=== PATIENT | male | born 1950 | race Caucasian/White ===

== ENCOUNTER 2017-12-06 16:08 | Inpatient (IN) ==
[2017-12-06] MEDS ORDERED: 0.9 % Sodium Chloride 1,000 ML IVC ONE (16:36)
--- NOTE | 2017-12-06 16:39 | Emergency Department Note ---
Disposition Clinical Impression: Jaundice GI bleed Qualifiers: GI bleed type/associated pathology: unspecified gastrointestinal hemorrhage type Qualified Code(s): K92.2 - Gastrointestinal hemorrhage, unspecified Anemia Qualifiers: Anemia type: unspecified type Qualified Code(s): D64.9 - Anemia, unspecified Disposition: Admitted As Inpatient Condition: Serious Referrals: Shawn Vazquez Jr, MD [Primary Care Provider] - Forms: ED Satisfaction Letter Time of Disposition: 18:41 General Adult HPI - General Chief complaint: ED Syncope Stated complaint: lightheaded Time Seen by Provider: 12/06/17 16:26 Source: patient, EMS Mode of arrival: ambulatory Limitations: no limitations Nursing Notes Reviewed: Yes Vital Signs Reviewed: Yes - History of Present Illness HPI Narrative: 67-year-old male who comes in complaining of running this morning did have a dominant pain for the last week thought maybe his gallbladder but he points the left side of his abdomen. Also had some diarrhea which has resolved. States when he gets up he feels a physical to pass out gets real tachycardic. Pain Scale: 0 - Related Data Home Medications Medication Instructions Recorded Confirmed ALPRAZolam [Xanax 0.25 MG Tablet] 0.25 mg PO BID PRN 12/06/17 12/06/17 Desmopressin Acetate [Ddavp] 0.1 mg PO DAILY 12/06/17 12/06/17 Levothyroxine [Synthroid] 75 mcg PO 0630 12/06/17 12/06/17 Lisinopril [Zestril] 10 mg PO DAILY 12/06/17 12/06/17 Mirtazapine [Remeron] 15 mg PO HS 12/06/17 12/06/17 OxyCODONE/APAP 10/325 [Percocet 1 tab PO QID 12/06/17 12/06/17 10/325 MG] Oxymorphone HCl [Oxymorphone HCl 30 mg PO QID 12/06/17 12/06/17 ER] Risedronate Sodium [Actonel] 20 mg PO QWEEK 12/06/17 12/06/17 Testosterone [Androderm] 1 patch TP DAILY 12/06/17 12/06/17 Testosterone [Androgel] 1 appl TP DAILY 12/06/17 12/06/17 Warfarin Sodium 2.5 mg PO Q48H 12/06/17 12/06/17 Warfarin Sodium 5 mg PO Q48H 12/06/17 12/06/17 amLODIPine [Norvasc] 5 mg PO DAILY 12/06/17 12/06/17 Allergies Allergy/AdvReac Type Severity Reaction Status Date / Time No Known Allergies Allergy Verified 12/06/17 18:50 All systems ED: reviewed and negative except as stated. Constitutional: Denies: fever, chills, weakness, weight change Eyes: Denies: eye pain, eye discharge, vision change ENT ED: Denies: ear pain, throat pain, dental pain, hearing loss, epistaxis, congestion, dysphagia Cardiovascular: Denies: chest pain, palpitations, dyspnea on exertion, edema, syncope Respiratory: Denies: cough, dyspnea, wheezes, hemoptysis, stridor Gastrointestinal: Reports: abdominal pain, nausea, vomiting. Denies: diarrhea, constipation, hematemesis, melena, hematochezia Genitourinary: Denies: urgency, dysuria, frequency, hematuria Musculoskeletal: Denies: back pain, neck pain, arthralgia, myalgia Integumentary: Denies: rash, abrasion, lesions Neurological: Denies: headache, weakness, numbness, paresthesias, confusion, abnormal gait, vertigo Psychiatric: Denies: anxiety, depression, suicidal thoughts, homicidal thoughts , auditory hallucinations, visual hallucinations Endocrine: Denies: fatigue Hematological/Lymphatic: Denies: easy bleeding, easy bruising Allergic/Immunologic: Denies: facial swelling, urticaria Past Medical History - Past Medical History Medical history: Reports: fibromyalgia, osteoporosis, thyroid disease Psychiatric history: Reports: anxiety, depression - Social History Smoking Status: Never smoker Smokeless Tobacco Status: No Alcohol use: Reports: none Drug use: Reports: none Physical Exam - General Limitations: no limitations General appearance: alert, in no apparent distress - Head Head exam: atraumatic, normocephalic, normal inspection - Eye Eye exam: Present: normal appearance, PERRL, EOMI - ENT ENT exam: normal exam, normal oropharynx, mucous membranes moist - Neck Neck exam: Present: normal inspection - Chest Chest inspection: Present: normal inspection, symmetric chest wall rise - Respiratory Respiratory exam: Present: normal lung sounds bilaterally - Cardiovascular Cardiovascular exam: Present: regular rate, normal rhythm, normal heart sounds - Abdominal Exam Abdominal exam: Present: soft, Non-Tender. Absent: tenderness, distention, guarding, rebound, rigidity - Extremities Exam Extremities exam: Present: normal inspection, full ROM. Absent: tenderness, pedal edema - Expanded Lower Extremity Exam Neurovascular/Tendon exam: Absent: motor deficit, sensory deficit, tendon deficit Gait: observed and normal - Back Exam Back exam: Present: normal inspection, full ROM. Absent: tenderness - Neurological Exam Neurological exam: Present: alert, oriented X3 - Psychiatric Psychiatric exam: Present: normal affect - Skin Skin exam: Present: warm, dry, intact, normal color Course - Reevaluation(s) Reevaluation #1: He 7-year-old who is on Coumadin for blood clots or comes in with rectal bleeding lightheadedness. He is found to be anemic with significant liver impairment along with quite likely secondary to Coumadin. Patient will be given blood, fresh frozen plasma, vitamin K. Time: 19:19 - Consultations Consultation #1: Discussed with Dr. Dykes he will see in consult. Time: 18:24 Consultation #2: Discussed with Dr. Dejesus oncology who recommends rest frozen plasma and vitamin K Time: 19:19 Consultation #3: Discussed with , admit. Time: 19:19 Vital Signs Temperature 98.4 F 12/06/17 16:11 Pulse Rate 121 12/06/17 16:11 Respiratory Rate 18 12/06/17 16:11 Blood Pressure 134/88 12/06/17 16:11 O2 Sat by Pulse Oximetry 96 12/06/17 16:11 Temperature 98.2 F 12/06/17 19:14 Pulse Rate 109 12/06/17 19:14 Respiratory Rate 18 12/06/17 19:14 Blood Pressure 142/80 12/06/17 19:14 O2 Sat by Pulse Oximetry 99 12/06/17 19:14 Oxygen Delivery Oxygen Delivery Room Air Medical Decision Making - Lab Data Result diagrams: 12/06/17 16:38 12/06/17 16:38 Lab Results 12/06/17 12/06/17 12/06/17 Range/Units 16:15 16:30 16:38 WBC 13.2 H (4.3-11.1) K/mcL RBC 2.18 L (4.19-5.50) M/mcL Hgb 6.5 L (12.9-16.9) g/dL Hct 19.1 L (37.5-50.1) % MCV 87.6 (83.0-100.0) fL MCH 29.8 (28.0-33.3) pg MCHC 34.0 (31.6-35.5) g/dL RDW 18.1 H (11.5-14.5) % Plt Count 285 (140-400) K/mcL MPV 10.4 (9.4-12.4) fL Immature Gran % 3.8 (0-4) % Seg Neutrophils % 67.6 % Lymphocytes % 19.2 % Monocytes % 9.0 % Eosinophils % 0.2 % Basophils % 0.2 % Neutrophils # 8.9 (1.6-8.9) K/mcL Lymphocytes # 2.5 (0.6-4.6) K/mcL Monocytes # 1.2 (0.0-1.3) K/mcL Eosinophils # 0.0 (0.0-0.6) K/mcL Basophils # 0.0 (0.0-0.2) K/mcL Nucleated RBCs/100 WBC 1.4 H (0) /100 WBC PT (9.4-12.1) Seconds INR APTT (26.0-36.0) Seconds Sodium (136-145) mEq/L Potassium (3.5-5.1) mEq/L Chloride (98-107) mEq/L Carbon Dioxide (23-29) mEq/L BUN (8-23) mg/dL Creatinine (0.70-1.30) mg/dL Est GFR ( Amer) (> 60) Est GFR (Non-Af Amer) (> 60) BUN/Creatinine Ratio (6-26) Glucose (70-105) mg/dL POC Glucose 172 H (70-99) mg/dL Calculated Osmolality (280-300) Lactic Acid 1.2 (0.5-2.2) mmol/L Calcium (8.6-10.3) mg/dL Total Bilirubin (0.3-1.0) mg/dL Direct Bilirubin (0.0-0.2) mg/dL Indirect Bilirubin (0.0-1.2) mg/dL AST (13-39) Units/L ALT (7-52) Units/L Alkaline Phosphatase (34-104) Units/L Troponin I (< 0.04) ng/mL Serum Total Protein (6.4-8.9) g/dL Albumin (3.5-5.7) g/dL Globulin (2.4-3.5) g/dL Albumin/Globulin Ratio (1.1-2.2) Amylase (29-103) Units/L Lipase (11-82) Units/L Ur Specimen Adequacy Urine Color (Yellow) Urine Clarity (Clear) Urine pH (5.0-8.0) pH Units Ur Specific [place] (1.010-1.025) Urine Protein (Neg-Trace) mg/dL Urine Glucose (UA) (Normal) mg/dL Urine Ketones (Negative) mg/dL Urine Blood (Negative) Urine Nitrite (Negative) Urine Bilirubin (Negative) Urine Urobilinogen (Normal) mg/dL Ur Leukocyte Esterase (Negative) Ur Culture Indicated? (NO) Blood Type Antibody Screen Crossmatch 12/06/17 12/06/17 12/06/17 Range/Units 16:38 17:27 18:13 WBC (4.3-11.1) K/mcL RBC (4.19-5.50) M/mcL Hgb (12.9-16.9) g/dL Hct (37.5-50.1) % MCV (83.0-100.0) fL MCH (28.0-33.3) pg MCHC (31.6-35.5) g/dL RDW (11.5-14.5) % Plt Count (140-400) K/mcL MPV (9.4-12.4) fL Immature Gran % (0-4) % Seg Neutrophils % % Lymphocytes % % Monocytes % % Eosinophils % % Basophils % % Neutrophils # (1.6-8.9) K/mcL Lymphocytes # (0.6-4.6) K/mcL Monocytes # (0.0-1.3) K/mcL Eosinophils # (0.0-0.6) K/mcL Basophils # (0.0-0.2) K/mcL Nucleated RBCs/100 WBC (0) /100 WBC PT (9.4-12.1) Seconds INR APTT (26.0-36.0) Seconds Sodium 134 L (136-145) mEq/L Potassium 4.0 (3.5-5.1) mEq/L Chloride 99 (98-107) mEq/L Carbon Dioxide 28 (23-29) mEq/L BUN 28 H (8-23) mg/dL Creatinine 1.09 (0.70-1.30) mg/dL Est GFR ( Amer) > 60 (> 60) Est GFR (Non-Af Amer) > 60 (> 60) BUN/Creatinine Ratio 26 (6-26) Glucose 155 H (70-105) mg/dL POC Glucose (70-99) mg/dL Calculated Osmolality 287 (280-300) Lactic Acid (0.5-2.2) mmol/L Calcium 8.9 (8.6-10.3) mg/dL Total Bilirubin 7.5 H (0.3-1.0) mg/dL Direct Bilirubin 4.8 H (0.0-0.2) mg/dL Indirect Bilirubin 2.7 H (0.0-1.2) mg/dL AST 75 H (13-39) Units/L ALT 131 H (7-52) Units/L Alkaline Phosphatase 445 H (34-104) Units/L Troponin I < 0.03 (< 0.04) ng/mL Serum Total Protein 5.5 L (6.4-8.9) g/dL Albumin 3.3 L (3.5-5.7) g/dL Globulin 2.2 L (2.4-3.5) g/dL Albumin/Globulin Ratio 1.5 (1.1-2.2) Amylase 29 (29-103) Units/L Lipase 91 H (11-82) Units/L Ur Specimen Adequacy See below A Urine Color Red A (Yellow) Urine Clarity Cloudy A (Clear) Urine pH 6.0 (5.0-8.0) pH Units Ur Specific [place] 1.030 H (1.010-1.025) Urine Protein 100 H (Neg-Trace) mg/dL Urine Glucose (UA) Normal (Normal) mg/dL Urine Ketones Trace H (Negative) mg/dL Urine Blood Large H (Negative) Urine Nitrite Negative (Negative) Urine Bilirubin Large H (Negative) Urine Urobilinogen Normal (Normal) mg/dL Ur Leukocyte Esterase Small H (Negative) Ur Culture Indicated? YES A (NO) Blood Type B POSITIVE Antibody Screen NEGATIVE Crossmatch See Detail 12/06/17 Range/Units 18:13 WBC (4.3-11.1) K/mcL RBC (4.19-5.50) M/mcL Hgb (12.9-16.9) g/dL Hct (37.5-50.1) % MCV (83.0-100.0) fL MCH (28.0-33.3) pg MCHC (31.6-35.5) g/dL RDW (11.5-14.5) % Plt Count (140-400) K/mcL MPV (9.4-12.4) fL Immature Gran % (0-4) % Seg Neutrophils % % Lymphocytes % % Monocytes % % Eosinophils % % Basophils % % Neutrophils # (1.6-8.9) K/mcL Lymphocytes # (0.6-4.6) K/mcL Monocytes # (0.0-1.3) K/mcL Eosinophils # (0.0-0.6) K/mcL Basophils # (0.0-0.2) K/mcL Nucleated RBCs/100 WBC (0) /100 WBC PT > 320.0 H* (9.4-12.1) Seconds INR > 29.6 H* APTT 147.7 H* (26.0-36.0) Seconds Sodium (136-145) mEq/L Potassium (3.5-5.1) mEq/L Chloride (98-107) mEq/L Carbon Dioxide (23-29) mEq/L BUN (8-23) mg/dL Creatinine (0.70-1.30) mg/dL Est GFR ( Amer) (> 60) Est GFR (Non-Af Amer) (> 60) BUN/Creatinine Ratio (6-26) Glucose (70-105) mg/dL POC Glucose (70-99) mg/dL Calculated Osmolality (280-300) Lactic Acid (0.5-2.2) mmol/L Calcium (8.6-10.3) mg/dL Total Bilirubin (0.3-1.0) mg/dL Direct Bilirubin (0.0-0.2) mg/dL Indirect Bilirubin (0.0-1.2) mg/dL AST (13-39) Units/L ALT (7-52) Units/L Alkaline Phosphatase (34-104) Units/L Troponin I (< 0.04) ng/mL Serum Total Protein (6.4-8.9) g/dL Albumin (3.5-5.7) g/dL Globulin (2.4-3.5) g/dL Albumin/Globulin Ratio (1.1-2.2) Amylase (29-103) Units/L Lipase (11-82) Units/L Ur Specimen Adequacy Urine Color (Yellow) Urine Clarity (Clear) Urine pH (5.0-8.0) pH Units Ur Specific [place] (1.010-1.025) Urine Protein (Neg-Trace) mg/dL Urine Glucose (UA) (Normal) mg/dL Urine Ketones (Negative) mg/dL Urine Blood (Negative) Urine Nitrite (Negative) Urine Bilirubin (Negative) Urine Urobilinogen (Normal) mg/dL Ur Leukocyte Esterase (Negative) Ur Culture Indicated? (NO) Blood Type Antibody Screen Crossmatch - Radiology Data Radiology results reviewed: Yes I reviewed the patient's radiology results. Abdomen/Pelvis CT 12/06/17 16:39 IMPRESSION: Moderate intra/extrahepatic biliary ductal dilation without common duct calcified stone. Correlation for obstruction by noncalcified stone, stricture mass is recommended. Segment of right/ proximal transverse colon, located within the lower right pelvis, with moderate wall thickening as well as some adjacent stranding and fluid. Although findings could represent focal colitis to include diverticulitis, neoplasm should be considered given degree of wall thickening. Left nephrolithiasis. D/ / Elle Bryan Cha, MD / Elle Bryan Cha, MD Interpreting Provider: Elle Bryan Cha, MD Critical Care Time Critical Care Time: Yes Total Critical Care Time: 60 Attestation: The high probability of a clinically significant, sudden or life threatening deterioration of the [cardiovascular, GI] system(s) required my full and direct attention, intervention and personal management. The aggregate critical care time was [60] minutes. This time is in addition to time spent performing reported procedures but includes the following: [x] Data Review and interpretation [x] Patient assessment and monitoring of vital signs [x] Documentation [x] Medication orders and management
[2017-12-06 17:02] LABS: Basophils % 0.2 %; Eosinophils % 0.2 %; Hematocrit 19.1 % (37.5-50.1); Hemoglobin 6.5 g/dL (12.9-16.9); Immature Granulocytes % 3.8 % (0-4); Lymphocytes # 2.5 K/mcL (0.6-4.6); Lymphocytes % 19.2 %; Mean Corpuscular Hemoglobin 29.8 pg (28.0-33.3); Mean Corpuscular Volume 87.6 fL (83.0-100.0); Mean Platelet Volume 10.4 fL (9.4-12.4); Monocytes # 1.2 K/mcL (0.0-1.3); Neutrophils # 8.9 K/mcL (1.6-8.9); Nucleated Red Blood Cells 1.4 /100 WBC (0); Platelet Count 285 K/mcL (140-400); Red Blood Count 2.18 M/mcL (4.19-5.50); Red Cell Distribution Width 18.1 % (11.5-14.5); Segmented Neutrophils % 67.6 %
[2017-12-06 17:19] LABS: Troponin I < 0.03 ng/mL (< 0.04)
[2017-12-06 17:20] LABS: Alanine Aminotransferase 131 Units/L (7-52); Albumin 3.3 g/dL (3.5-5.7); Albumin/Globulin Ratio 1.5 (1.1-2.2); Alkaline Phosphatase 445 Units/L (34-104); Amylase 29 Units/L (29-103); Aspartate Amino Transferase 75 Units/L (13-39); BUN/Creatinine Ratio 26 (6-26); Bilirubin,Direct 4.8 mg/dL (0.0-0.2); Bilirubin,Indirect 2.7 mg/dL (0.0-1.2); Bilirubin,Total 7.5 mg/dL (0.3-1.0); Blood Urea Nitrogen 28 mg/dL (8-23); Calcium 8.9 mg/dL (8.6-10.3); Carbon Dioxide 28 mEq/L (23-29); Chloride 99 mEq/L (98-107); Globulin 2.2 g/dL (2.4-3.5); Glucose 155 mg/dL (70-105); Lipase 91 Units/L (11-82); Osmolality,Calculated 287 (280-300); Sodium 134 mEq/L (136-145); Total Protein 5.5 g/dL (6.4-8.9); eGFR For African Americans > 60 (> 60); eGFR For Non-African Americans > 60 (> 60)
[2017-12-06 17:54] LABS: Bilirubin,Urine Large (Negative); Blood,Urine Large (Negative); Clarity,Urine Cloudy (Clear); Glucose,Urine (UA) Normal (Normal); Ketones,Urine Trace mg/dL (Negative); Leukocyte Esterase,Urine Small (Negative); Nitrite,Urine Negative (Negative); Protein,Urine 100 mg/dL (Neg-Trace); Urobilinogen,Urine Normal (Normal)
[2017-12-06 17:55] LABS: Color,Urine Red (Yellow)
[2017-12-06] MEDS ORDERED: 0.9 % Sodium Chloride 500 ML ONE (18:34)
[2017-12-06 19:10] LABS: Activated Partial Thrombo Time 147.7 Seconds (26.0-36.0); INR > 29.6; Prothrombin Time > 320.0 Seconds (9.4-12.1)
[2017-12-06 19:19] LABS: Heparin anti-factor XA UFH 0.05 IU/mL (0.30-0.70)
--- NOTE | 2017-12-06 19:54 | Internal Med History&Physical ---
Date of Encounter: 12/06/17 Time of Encounter: 19:47 Internal Medicine - H&P: HPI Chief complaint: Lightheadedness Admitted From: Home History of present illness: Mr. 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 Patient states that he has been feeling lightheaded for at least a couple weeks. States it is worse upon standing or with exertion. Patient states that he feels weak. Patient states that he had some abdominal pain last Monday with associated diarrhea which has since resolved. Patient thought he was getting over the flu. Patient noted bright red blood in his stool earlier today. Denies history of GI bleeding or colonoscopies in the past. Denies history of colon cancer. Denies any chest pain but did feel palpitations related to his lightheadedness. Patient's also noted pruritus diffusely. Denies alcohol use. States he does take lower dose Tylenol occasionally. Denies any history of heart attacks and/or stents. No changes in medications recently. Reports no changes in his Coumadin. Patient also denied any noticeable changes in his skin color. Seen and examined in the emergency department. Patient's ED evaluation included basic labs including coagulation panel were patient's INR was noted to be supratherapeutic. Patient was given vitamin K, FFP, and 2 units of PRBCs. Patient's tachycardic but blood pressures preserved. Patient also had a CT scan abd/ pelvis which showed moderate intra-next hepatic biliary duct dilation without a common duct calcified stone. Segment of the proximal transverse colon with moderate wall thickening and adjacent stranding and fluid focal colitis versus diverticulitis versus neoplasm. Patient denies any abdominal pain currently. No nausea or vomiting. Past Med Surg Social Fam HX - Past Medical History Medical history: fibromyalgia, osteoporosis, thyroid disease Psychiatric history: anxiety, depression - Social History Smoking Status: Never smoker Smokeless Tobacco Status: No Alcohol use: none Drug use: none Internal Medicine - H&P: Meds ALPRAZolam [Xanax 0.25 MG Tablet] 0.25 mg PO BID PRN 12/06/17 [History] Desmopressin Acetate [Ddavp] 0.1 mg PO DAILY 12/06/17 [History] Levothyroxine [Synthroid] 75 mcg PO 30 12/06/17 [History] Lisinopril [Zestril] 10 mg PO DAILY 12/06/17 [History] Mirtazapine [Remeron] 15 mg PO HS 12/06/17 [History] OxyCODONE/APAP 10/325 [Percocet 10/325 MG] 1 tab PO QID 12/06/17 [History] Oxymorphone HCl [Oxymorphone HCl ER] 30 mg PO QID 12/06/17 [History] Risedronate Sodium [Actonel] 20 mg PO QWEEK 12/06/17 [History] Testosterone [Androderm] 1 patch TP DAILY 12/06/17 [History] Testosterone [Androgel] 1 appl TP DAILY 12/06/17 [History] Warfarin Sodium 2.5 mg PO Q48H 12/06/17 [History] Warfarin Sodium 5 mg PO Q48H 12/06/17 [History] amLODIPine [Norvasc] 5 mg PO DAILY 12/06/17 [History] 3 Allergy/AdvReac Type Severity Reaction Status Date / Time No Known Allergies Allergy Verified 12/06/17 18:50 All Systems PM: A 10-system review of systems was performed and is negative for pertinent findings except as documented above in the HPI. - Constitutional Constitutional: as per HPI, weakness, no fever(s) - Cardiovascular Cardiovascular ROS IM: as per HPI, dyspnea, dyspnea on exertion, lightheadedness , palpitations, no chest pain - Respiratory Respiratory: as per HPI, dyspnea, no cough, no hemoptysis - Gastrointestinal Gastrointestinal: as per HPI, abdominal pain, hematochezia, no melena - Integumentary Integumentary IM: as per HPI - Neurological Neurological ROS: as per HPI - Endocrine Endocrine IM: as per HPI - Hematologic/Lymphatic Hematologic/Lymphatic: as per HPI - Constitutional Vitals: Temp Pulse Resp BP Pulse Ox 98.2 F 116 18 149/82 99 12/06/17 19:14 12/06/17 19:31 12/06/17 19:31 12/06/17 19:31 12/06/17 19:14 General appearance: Present: cooperative, A&O X 3, answers questions appropriately - Head Head exam: Present: atraumatic, normocephalic - Eye Eye exam: Present: EOMI, PERRL, scleral icterus. Absent: conjunctival injection - ENT ENT exam: Present: mucous membranes moist, normal exam - Neck Neck exam general surgery: Present: full ROM, normal inspection - Respiratory Respiratory exam: Present: accessory muscle use, CTAB. Absent: respiratory distress - Cardiovascular Cardiovascular exam: Present: +S1, +S2, tachycardia - GI/Abdominal GI/Abdominal exam: Present: soft. Absent: rebound, tenderness, no peritoneal signs - Extremities Exam Extremities exam: Present: normal inspection, warm. Absent: pedal edema - Neurological Exam Neurological exam: Present: alert, CN II-XII intact, oriented X3, no focal deficits - Skin Skin exam: Present: pallor (Jaundice), warm Internal Med - H&P Results - Labs CBC & Chem 7: 12/06/17 16:38 12/06/17 16:38 Labs: Short CBC 12/06/17 Range/Units 16:38 WBC 13.2 H (4.3-11.1) K/mcL Hgb 6.5 L (12.9-16.9) g/dL Hct 19.1 L (37.5-50.1) % Plt Count 285 (140-400) K/mcL Neutrophils # 8.9 (1.6-8.9) K/mcL BMP 12/06/17 16:38 Sodium 134 L Potassium 4.0 Chloride 99 Carbon Dioxide 28 BUN 28 H Creatinine 1.09 Glucose 155 H Calcium 8.9 Cardiac Enzymes 12/06/17 Range/Units 16:38 Troponin I < 0.03 (< 0.04) ng/mL Liver Function 12/06/17 Range/Units 16:38 Total Bilirubin 7.5 H (0.3-1.0) mg/dL Direct Bilirubin 4.8 H (0.0-0.2) mg/dL AST 75 H (13-39) Units/L ALT 131 H (7-52) Units/L Alkaline Phosphatase 445 H (34-104) Units/L Albumin 3.3 L (3.5-5.7) g/dL Urine 12/06/17 Range/Units 17:27 Urine Color Red A (Yellow) Urine Clarity Cloudy A (Clear) Urine pH 6.0 (5.0-8.0) pH Units Ur Specific [place] 1.030 H (1.010-1.025) Urine Protein 100 H (Neg-Trace) mg/dL Urine Glucose (UA) Normal (Normal) mg/dL - Impressions ITS Impressions Abdomen/Pelvis CT 12/06/17 16:39 IMPRESSION: Moderate intra/extrahepatic biliary ductal dilation without common duct calcified stone. Correlation for obstruction by noncalcified stone, stricture mass is recommended. Segment of right/ proximal transverse colon, located within the lower right pelvis, with moderate wall thickening as well as some adjacent stranding and fluid. Although findings could represent focal colitis to include diverticulitis, neoplasm should be considered given degree of wall thickening. Left nephrolithiasis. D/ / Elle Bryan Cha, MD / Elle Bryan Cha, MD Interpreting Provider: Elle Bryan Cha, MD - Assessment and plan (1) Supratherapeutic INR Current Visit: Yes Status: Acute Assessment and plan: Patient is chronically anticoagulated due to recurrent DVTs. Patient's INR was noted to be 29.6. Concerns of GI bleed as the patient had bright blood in his stool this morning. Patient does have an acute drop in his hemoglobin to 6.5. Patient is symptomatic. We will reverse the patient's coagulopathy given his symptomatic anemia. Patient denies history of mechanical heart valve. INR also likely elevated secondary to liver injury. Patient denies alcohol use however the patient does take chronic Percocet. Will check an acetaminophen level. Plan -Vitamin K -FFP 2 units -Hematology oncology consult from the ED. Appreciate recommendations. (2) Anemia Current Visit: Yes Status: Acute Assessment and plan: Hemoglobin to 6.5. Patient's symptomatic with lightheadedness and weakness with exertion. We will transfuse the patient. 2 units of PRBC were ordered per the ED. Plan -Transfuse 2 units PRBC now -Serial H&H's -Transfusion goal of hemoglobin greater than 7. Qualifiers: Anemia type: unspecified type Qualified Code(s): D64.9 - Anemia, unspecified (3) Elevated bilirubin Current Visit: Yes Status: Acute Assessment and plan: Total bilirubin of 7.5 with direct of 4.8. CT scan showed intra-and extrahepatic biliary duct dilation without calcified stone. PLAN -We will check an ultrasound of the liver. -Consult GI appreciate recs. (4) Transaminitis Current Visit: Yes Status: Acute Assessment and plan: AST is 75 a ALT 131. Denies alcohol use. However, patient does have excessive opioids. PLAN -acetaminophen level -Viral Hepatitis panel -Avoid hepatatoxins -GI consult (5) GI bleed Current Visit: Yes Status: Acute Assessment and plan: Patient has an acute drop in hemoglobin with bright blood in his stool. Denies history of colonoscopies or colon cancer in the past. CT the abdomen and pelvis shows evidence of inflammatory versus neoplasm. Patient's abdominal exam is unremarkable. General surgery was consult at from the ER. Appreciate their recommendations. Plan -Transfuse as above. Reverse coagulopathy as above -Proton 40 mg twice a day -General surgery consult for endoscopy. Appreciate recommendations. -Anticipate endoscopy once reversal of coagulation. Qualifiers: GI bleed type/associated pathology: unspecified gastrointestinal hemorrhage type Qualified Code(s): K92.2 - Gastrointestinal hemorrhage, unspecified (6) Jaundice Current Visit: Yes Status: Acute Assessment and plan: Elevated total bilirubin. Patient has pruritus related to his jaundice. Plan as above (7) DVT prophylaxis Current Visit: Yes Status: Acute Assessment and plan: Supratherapeutic INR in the setting of GI bleed. Mechanical prophylaxis - Time Spent With Patient Total time spent is greater than 50% in coordination of care (as documented) at patient's floor/unit and/or counseling patient:
[2017-12-06] MEDS ORDERED: Naloxone 0.4 MG/ML INJ IVP PRN ×2 (20:02)
[2017-12-06] MEDS ORDERED: Pantoprazole 40 MG VIAL IVP ONE (20:13)
--- NOTE | 2017-12-06 20:24 | Event Note ---
Date of Encounter: 12/07/17 Time of Encounter: 20:21 Patient was seen and examined. I agree with the Resident Physician's H&P as written. 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 Has noted BRBPR today but has seen black tarry stools in the past. He has vague abdominal pain. In the ED he was tachycardic but stable otherwise. Laboratory work up showed hgb 6.5 with previous Hgb around 14-15. INR >29. Abnormal LFTs. CT abd/pelvis showed moderate intra/ extrahepatic biliary ductal dilation without CBD stone. Patient is jaundiced and pale Tachycardic. S1, S2, no m/r/g CTAB Soft, NT, ND, +BS No edema, 2+DP Nonfocal Admit to ICU 2 units PRBCs, FFPs, IV vit K Serial H/H IV PPI Surgery c/s in the ED and coming to evaluate the patient Hold Coumadin Unclear why in liver failure. check hepatitis panel, tylenol level GI consult for abnormal LFTs and CT abd/pelvis findings RUQ US. May need MRCP/ERCP
[2017-12-06] MEDS ORDERED: 0.9 % Sodium Chloride 250 ML ONE ×2 (20:26→22:22)
[2017-12-06 20:27] LABS: Acetaminophen < 10 mcg/mL (10-20)
[2017-12-06] MEDS: 0.9 % Sodium Chloride 1,000 ML IVC SCH (20:27)
[2017-12-07] MEDS ORDERED: 0.9 % Sodium Chloride 250 ML ONE ×3 (02:10→22:43)
[2017-12-07] MEDS: OXYCODONE Oral CONC 10 MG/0.5 ML ORAL.SYG SL PRN ×2 (02:21→09:21)
[2017-12-07 02:22] LABS: VBG Ionized Calcium 1.01 mmol/L (1.15-1.35)
[2017-12-07 02:31] LABS: Hematocrit 21.3 % (37.5-50.1); Hemoglobin 6.9 g/dL (12.9-16.9)
[2017-12-07 02:32] LABS: Alanine Aminotransferase 104 Units/L (7-52); Albumin/Globulin Ratio 1.4 (1.1-2.2); Alkaline Phosphatase 367 Units/L (34-104); Aspartate Amino Transferase 62 Units/L (13-39); BUN/Creatinine Ratio 26 (6-26); Basophils % 0.4 %; Bilirubin,Total 7.5 mg/dL (0.3-1.0); Blood Urea Nitrogen 26 mg/dL (8-23); Calcium 8.1 mg/dL (8.6-10.3); Carbon Dioxide 25 mEq/L (23-29); Chloride 103 mEq/L (98-107); Eosinophils # 0.1 K/mcL (0.0-0.6); Eosinophils % 1.4 %; Globulin 2.1 g/dL (2.4-3.5); Glucose 112 mg/dL (70-105); Hematocrit 21.7 % (37.5-50.1); Hemoglobin 7.1 g/dL (12.9-16.9); INR 1.8; Immature Granulocytes % 4.7 % (0-4); Lymphocytes # 2.4 K/mcL (0.6-4.6); Lymphocytes % 23.4 %; Magnesium 1.6 mg/dL (1.6-2.6); Mean Corpuscular HGB Conc 32.7 g/dL (31.6-35.5); Mean Corpuscular Hemoglobin 29.3 pg (28.0-33.3); Mean Corpuscular Volume 89.7 fL (83.0-100.0); Mean Platelet Volume 10.1 fL (9.4-12.4); Monocytes % 9.5 %; Neutrophils # 6.2 K/mcL (1.6-8.9); Nucleated Red Blood Cells 1.9 /100 WBC (0); Osmolality,Calculated 286 (280-300); Phosphorous 3.1 mg/dL (2.7-4.5); Platelet Count 169 K/mcL (140-400); Prothrombin Time 19.4 Seconds (9.4-12.1); Red Blood Count 2.42 M/mcL (4.19-5.50); Segmented Neutrophils % 60.6 %; Sodium 135 mEq/L (136-145); Total Protein 5.1 g/dL (6.4-8.9); eGFR For African Americans > 60 (> 60); eGFR For Non-African Americans > 60 (> 60)
[2017-12-07 02:36] LABS: Activated Partial Thrombo Time 22.3 Seconds (26.0-36.0)
[2017-12-07 03:45] LABS: Hepatitis B Surface Antigen Nonreactive (Nonreactive)
[2017-12-07 05:20] LABS: Hematocrit 19.9 % (37.5-50.1); Hemoglobin 6.9 g/dL (12.9-16.9)
[2017-12-07] MEDS ORDERED: Pantoprazole 40 MG VIAL IVP SCH (09:00)
--- NOTE | 2017-12-07 10:00 | General Surgery Consult Note ---
Date of Encounter: 12/07/17 Time of Encounter: 09:00 Assessment and Plan (1) GI bleed Current Visit: Yes Status: Acute Brisk UGI bleed vs LGI Bleed Gross red blood per rectum noted 12/06/2017 saturating bowl. Symptomatic anemia; initial hemoglobin 6.5g/dL. Hgb 6.9 this AM after 2u pRBCs Sinus tachycardia in 120s with normal-elevated BP; unstable. On Warfarin with initial INR supratherapeutic (>29); 1.8 after FFP & Vit-K. H/ O consulted by primary team. 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 Per patient, he has had gradually worsening fatigue over the last several weeks. Patient states it just feels like he is tired all the time. Saw his primary care provider, Dr. Vazquez, on Monday of last week; patient recalls no distinct intervention. Patient also describes a vague suprapubic cramping sensation during the last week or so. Also developing diffuse pruritus. Denies any nausea or vomiting prior to hospitalization. Over the last 2 days, patient states he began to feel short of breath, the heart palpitations, and lightheaded when he would get up to walk. Patient had one stool yesterday in the early afternoon that featured with blood coated stools prior to wiping. Patient states blood saturated bowl. This coupled with the presyncopal sensation prompted patients presentation to the ED for further evaluation. States has had melena in the past, but not lately (no eval specifically for this). ED: Patient initially tachycardic in the ED, however other vitals are stable. Initial labs include white cell count of 13.2, hemoglobin of 6.5 (previously 14.5 in 2014), hct of 19.1, platelet count of 285, INR greater than 29.6, a PTT 147.7, normal electrolytes (see results), total bilirubin of 7.5, direct bilirubin of 4.8, indirect bilirubin of 2.7, AST 75, ALT 131, ALP 45, troponin less than 0.03, and lipase 91. Acetaminophen level less than 10. HBsAg nonreactive. UA significant for cloudy gross red quality, large blood, large bilirubin. CT done in the ER demonstrated extrahepatic biliary dilatation without visualized stone, and right transverse colon with wall thickening and adjacent stranding. Follow-up right upper quadrant ultrasound demonstrated diffuse wall thickening, luminal bile/sludge, CVD dilatation to 8.1 mm; this was stated as a technically limited exam due to bowel gas interference. Admitted to ICU with surgical consult for assessment of GI bleed. So far has received 2 units of packed red blood cells and 2 units of FFP. Last hemoglobin collected at 0500 was 6.9 g/dL. Past Med Surg Social Fam HX - Past Medical History Source: patient Medical history: fibromyalgia, GERD, osteoporosis, thyroid disease Psychiatric history: anxiety, depression - Social History Smoking Status: Never smoker Smokeless Tobacco Status: No Alcohol use: none Drug use: none - Family History Mother Living Status: Age at : 74 Cause of : CHF Hx Family Cardiac Disorders: Yes (CHF, CVA) Hx Family Endocrine Disorder: Yes (DM) Medications and Allergies ALPRAZolam [Xanax 0.25 MG Tablet] 0.25 mg PO BID PRN 12/06/17 [History] Desmopressin Acetate [Ddavp] 0.1 mg PO DAILY 12/06/17 [History] Levothyroxine [Synthroid] 75 mcg PO 0630 12/06/17 [History] Lisinopril [Zestril] 10 mg PO DAILY 12/06/17 [History] Mirtazapine [Remeron] 15 mg PO HS 12/06/17 [History] OxyCODONE/APAP 10/325 [Percocet 10/325 MG] 1 tab PO QID 12/06/17 [History] Oxymorphone HCl [Oxymorphone HCl ER] 30 mg PO QID 12/06/17 [History] Risedronate Sodium [Actonel] 20 mg PO QWEEK 12/06/17 [History] Testosterone [Androderm] 1 patch TP DAILY 12/06/17 [History] Testosterone [Androgel] 1 appl TP DAILY 12/06/17 [History] Warfarin Sodium 2.5 mg PO Q48H 12/06/17 [History] Warfarin Sodium 5 mg PO Q48H 12/06/17 [History] amLODIPine [Norvasc] 5 mg PO DAILY 12/06/17 [History] 3 Allergy/AdvReac Type Severity Reaction Status Date / Time No Known Allergies Allergy Verified 12/06/17 18:50 Review of Systems All systems PM: Patient denies any fevers, chills, sweats, headaches, chest pain, constipation during present course, dysuria, hematuria, abnormal urethral discharge, testicular pain, or change in chronic pedal edema. Denies noticing any skin color change prior to admission. General Surgery Exam Initial Vital Signs Temp Pulse Resp BP Pulse Ox 98.4 F 121 18 134/88 96 12/06/17 16:11 12/06/17 16:11 12/06/17 16:11 12/06/17 16:11 12/06/17 16:11 VITAL SIGNS: Reviewed. Tachycardic in the 120s; sinus on the monitor. GENERAL: comfortably supine, no acute distress, answers questions appropriately. HEENT: icteric sclerae, oropharynx pink/moist, no JVD noted.] CV: RRR, no murmurs or gallops, no JVD RESPIRATORY: CTAB without wheezes, rales, or rhonchi ABD: grossly normal, active sounds, soft, tender to RLQ, no rebound/distention/ rigidity, no peritoneal signs. EXTREMITY: grossly normal motor function, no pedal edema, peripheral pulses 2+ b /l NEUROLOGIC EXAM: AOx3, obeys commands, no speech deficits. PSYCHIATRIC: normal mood and affect SKIN: mild generalized jaundice Exam Initial Vital Signs Temp Pulse Resp BP Pulse Ox 98.4 F 121 18 134/88 96 12/06/17 16:11 12/06/17 16:11 12/06/17 16:11 12/06/17 16:11 12/06/17 16:11 Results - Labs 12/07/17 04:58 12/07/17 02:01 Abnormal lab results RBC 2.42 M/mcL (4.19-5.50) L 12/07/17 02:01 Hgb 6.9 g/dL (12.9-16.9) L 12/07/17 04:58 Hct 19.9 % (37.5-50.1) L 12/07/17 04:58 RDW 19.0 % (11.5-14.5) H 12/07/17 02:01 Immature Gran % 4.7 % (0-4) H 12/07/17 02:01 Nucleated RBCs/100 WBC 1.9 /100 WBC (0) H 12/07/17 02:01 PT 19.4 Seconds (9.4-12.1) H D 12/07/17 02:01 APTT 22.3 Seconds (26.0-36.0) L D 12/07/17 02:01 Heparin Anti-Xa, Unfract 0.05 IU/mL (0.30-0.70) L 12/06/17 18:13 Sodium 135 mEq/L (136-145) L 12/07/17 02:01 BUN 26 mg/dL (8-23) H 12/07/17 02:01 Glucose 112 mg/dL (70-105) H 12/07/17 02:01 POC Glucose 145 mg/dL (70-99) H 12/06/17 21:49 Calcium 8.1 mg/dL (8.6-10.3) L 12/07/17 02:01 Venous Ioniz Calcium 1.01 mmol/L (1.15-1.35) L 12/07/17 02:19 Total Bilirubin 7.5 mg/dL (0.3-1.0) H 12/07/17 02:01 Direct Bilirubin 4.8 mg/dL (0.0-0.2) H 12/06/17 16:38 Indirect Bilirubin 2.7 mg/dL (0.0-1.2) H 12/06/17 16:38 AST 62 Units/L (13-39) H 12/07/17 02:01 ALT 104 Units/L (7-52) H 12/07/17 02:01 Alkaline Phosphatase 367 Units/L (34-104) H 12/07/17 02:01 Serum Total Protein 5.1 g/dL (6.4-8.9) L 12/07/17 02:01 Albumin 3.0 g/dL (3.5-5.7) L 12/07/17 02:01 Globulin 2.1 g/dL (2.4-3.5) L 12/07/17 02:01 Lipase 91 Units/L (11-82) H 12/06/17 16:38 Ur Specimen Adequacy See below A 12/06/17 17: Urine Color Red (Yellow) A 12/06/17 17: Urine Clarity Cloudy (Clear) A 12/06/17 17: Ur Specific [place] 1.030 (1.010-1.025) H 12/06/17 17:27 Urine Protein 100 mg/dL (Neg-Trace) H 12/06/17 17: Urine Ketones Trace mg/dL (Negative) H 12/06/17 17: Urine Blood Large (Negative) H 12/06/17 17: Urine Bilirubin Large (Negative) H 12/06/17 17: Ur Leukocyte Esterase Small (Negative) H 12/06/17 17: Ur Culture Indicated? YES (NO) A 12/06/17: Acetaminophen < 10 mcg/mL (10-20) L 12/06/17 16:38 Diabetes panel 12/07/17 Range/Units 02:01 Sodium 135 L (136-145) mEq/L Potassium 4.0 (3.5-5.1) mEq/L Chloride 103 (98-107) mEq/L Carbon Dioxide 25 (23-29) mEq/L BUN 26 H (8-23) mg/dL Creatinine 1.01 (0.70-1.30) mg/dL Glucose 112 H (70-105) mg/dL Calcium 8.1 L (8.6-10.3) mg/dL AST 62 H (13-39) Units/L ALT 104 H (7-52) Units/L Alkaline Phosphatase 367 H (34-104) Units/L Albumin 3.0 L (3.5-5.7) g/dL Calcium panel 12/07/17 Range/Units 02:01 Calcium 8.1 L (8.6-10.3) mg/dL Phosphorus 3.1 (2.7-4.5) mg/dL Albumin 3.0 L (3.5-5.7) g/dL Pituitary panel 12/07/17 Range/Units 02:01 Sodium 135 L (136-145) mEq/L Potassium 4.0 (3.5-5.1) mEq/L Chloride 103 (98-107) mEq/L Carbon Dioxide 25 (23-29) mEq/L BUN 26 H (8-23) mg/dL Creatinine 1.01 (0.70-1.30) mg/dL Glucose 112 H (70-105) mg/dL Calcium 8.1 L (8.6-10.3) mg/dL Adrenal panel 12/07/17 Range/Units 02:01 Sodium 135 L (136-145) mEq/L Potassium 4.0 (3.5-5.1) mEq/L Chloride 103 (98-107) mEq/L Carbon Dioxide 25 (23-29) mEq/L BUN 26 H (8-23) mg/dL Creatinine 1.01 (0.70-1.30) mg/dL Glucose 112 H (70-105) mg/dL Calcium 8.1 L (8.6-10.3) mg/dL Total Bilirubin 7.5 H (0.3-1.0) mg/dL AST 62 H (13-39) Units/L ALT 104 H (7-52) Units/L Alkaline Phosphatase 367 H (34-104) Units/L Albumin 3.0 L (3.5-5.7) g/dL All other labs normal. Consult Discharge Plan - Plan Referrals: Shawn Vazquez Jr, MD [Primary Care Provider] -
--- NOTE | 2017-12-07 10:07 | Oncology Inp Consult Note ---
<Jennyfer Concepcion - Last Filed: 12/07/17 17:03> Date of Encounter: 12/07/17 - Data of Consult Requesting Physician: Megan Rowell Primary Care Provider: Shawn Vazquez Jr, MD - Consult Narrative History of present illness: Coagulopathy, anticoagulant use, liver dysfunction. Imaging findings reviewed. Coagulopathy being corrected. 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 R/O colon malignancy, potential bleeding site for scope tomorrow. Will add tumor markers to labs I examined this patient and my medical decision-making was reviewed with the Advanced Practice Nurse, Cadence Figueroa. I agree with the documented findings, disposition and treatment plan as described except to the extent set forth below. Medications and Allergies ALPRAZolam [Xanax 0.25 MG Tablet] 0.25 mg PO BID PRN 12/06/17 [History] Desmopressin Acetate [Ddavp] 0.1 mg PO DAILY 12/06/17 [History] Levothyroxine [Synthroid] 75 mcg PO 0630 12/06/17 [History] Lisinopril [Zestril] 10 mg PO DAILY 12/06/17 [History] Mirtazapine [Remeron] 15 mg PO HS 12/06/17 [History] OxyCODONE/APAP 10/325 [Percocet 10/325 MG] 1 tab PO QID 12/06/17 [History] Oxymorphone HCl [Oxymorphone HCl ER] 30 mg PO QID 12/06/17 [History] Risedronate Sodium [Actonel] 20 mg PO QWEEK 12/06/17 [History] Testosterone [Androderm] 1 patch TP DAILY 12/06/17 [History] Testosterone [Androgel] 1 appl TP DAILY 12/06/17 [History] Warfarin Sodium 2.5 mg PO Q48H 12/06/17 [History] Warfarin Sodium 5 mg PO Q48H 12/06/17 [History] amLODIPine [Norvasc] 5 mg PO DAILY 12/06/17 [History] 3 Allergy/AdvReac Type Severity Reaction Status Date / Time No Known Allergies Allergy Verified 12/06/17 18:50 Oncology - Exam - Constitutional Vitals: Temp Pulse Resp BP Pulse Ox 98.3 F 107 18 173/105 100 12/07/17 12:25 12/07/17 12:25 12/07/17 12:25 12/07/17 12:25 12/07/17 12:25 Oncology - Results Labs: 12/07/17 12/07/17 12/07/17 04:58 02:19 02:01 WBC RBC Hgb 6.9 L Hct 19.9 L MCV MCH MCHC RDW Plt Count MPV Immature Gran % Seg Neutrophils % Lymphocytes % Monocytes % Eosinophils % Basophils % Neutrophils # Lymphocytes # Monocytes # Eosinophils # Basophils # Nucleated RBCs/100 WBC PT INR APTT Sodium 135 L Potassium 4.0 Chloride 103 Carbon Dioxide 25 BUN 26 H Creatinine 1.01 Est GFR ( Amer) > 60 Est GFR (Non-Af Amer) > 60 BUN/Creatinine Ratio 26 Glucose 112 H POC Glucose Calculated Osmolality 286 Calcium 8.1 L Venous Ioniz Calcium 1.01 L Phosphorus 3.1 Magnesium 1.6 Total Bilirubin 7.5 H AST 62 H ALT 104 H Alkaline Phosphatase 367 H Serum Total Protein 5.1 L Albumin 3.0 L Globulin 2.1 L Albumin/Globulin Ratio 1.4 Hep Bs Antigen 12/07/17 12/07/17 12/07/17 02:01 02:01 02:01 WBC 10.3 RBC 2.42 L Hgb 7.1 L Hct 21.7 L MCV 89.7 MCH 29.3 MCHC 32.7 RDW 19.0 H Plt Count 169 MPV 10.1 Immature Gran % 4.7 H Seg Neutrophils % 60.6 Lymphocytes % 23.4 Monocytes % 9.5 Eosinophils % 1.4 Basophils % 0.4 Neutrophils # 6.2 Lymphocytes # 2.4 Monocytes # 1.0 Eosinophils # 0.1 Basophils # 0.0 Nucleated RBCs/100 WBC 1.9 H PT 19.4 H D INR 1.8 D APTT 22.3 L D Sodium Potassium Chloride Carbon Dioxide BUN Creatinine Est GFR ( Amer) Est GFR (Non-Af Amer) BUN/Creatinine Ratio Glucose POC Glucose Calculated Osmolality Calcium Venous Ioniz Calcium Phosphorus Magnesium Total Bilirubin AST ALT Alkaline Phosphatase Serum Total Protein Albumin Globulin Albumin/Globulin Ratio Hep Bs Antigen Nonreactive 12/07/17 12/06/17 02:01 21:49 WBC RBC Hgb 6.9 L Hct 21.3 L MCV MCH MCHC RDW Plt Count MPV Immature Gran % Seg Neutrophils % Lymphocytes % Monocytes % Eosinophils % Basophils % Neutrophils # Lymphocytes # Monocytes # Eosinophils # Basophils # Nucleated RBCs/100 WBC PT INR APTT Sodium Potassium Chloride Carbon Dioxide BUN Creatinine Est GFR ( Amer) Est GFR (Non-Af Amer) BUN/Creatinine Ratio Glucose POC Glucose 145 H Calculated Osmolality Calcium Venous Ioniz Calcium Phosphorus Magnesium Total Bilirubin AST ALT Alkaline Phosphatase Serum Total Protein Albumin Globulin Albumin/Globulin Ratio Hep Bs Antigen Consult Discharge Plan - Plan Referrals: Shawn Vazquez Jr, MD [Primary Care Provider] - 12/14/17 10:00 am <Cadence Figueroa - Last Filed: 12/08/17 10:17> Date of Encounter: 12/07/17 Time of Encounter: 10:07 Assessment and Plan (1) GI bleed Status: Acute Assessment and plan: GIB likely precipitated by supratherapeutic INR which was >29, PTT 137 on admission. INR reversed s/p FFP and Vitamin K. Hgb 6.9 s/p 2 units PRBC, 1 more unit transfusing now, continue to closely monitor H&H Reports BRBPR incident prior to presentation to ER and melena like stools for a few days which he thought was secondary to pepto bismol use. GI consult-likely plan for EGD/colonoscopy and potential EUS/ERCP CT scan does note segment of right/ proximal transverse colon with moderate wall thickening as well as some adjacent stranding and fluid. this could be secondary to inflammatory response such as colitis/diverticulitis, however, malignancy is also in differential. He has had no prior EGD/Colonoscopy. Continue to hold coumadin. Likely plan to transition to DOAC in future, pending further workup H/O recurrent DVT's and remains at high risk- SCD's for DVT prevention. Qualifiers: GI bleed type/associated pathology: unspecified gastrointestinal hemorrhage type Qualified Code(s): K92.2 - Gastrointestinal hemorrhage, unspecified (2) Supratherapeutic INR Status: Acute Assessment and plan: Supratherapeutic INR may be precipated by coumadin use in presence of acute liver coagulopathy-GI workup pending INR reversed (3) Transaminitis Status: Acute Assessment and plan: CT abdomen/palvis without contrast demonstrated extrahepatic biliary dilatation without visualized stone Gallbladder US does reveal thickened GB wall along with thick bile/sludge Hepatitis screening panel pending GI consulted and note reviewed. Planned for MRCP and potential EUS/ERCP tomorrow - Data of Consult Patient: new to practice Consult date: 12/07/17 Requesting Physician: Megan Rowell Primary Care Provider: Shawn Vazquez Jr, MD - Consult Narrative Reason for consult: Acute GIB, supratherapeutic INR, Abnormal CT abdomen History of present illness: Mr. 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 Mr. Pearson presented to the ER on 12/06/17 with report of severe generalized weakness causing inability to stand/ambulate, fatigue, lightheadedness, BRBPR and heat palpitations. He was found to be tachycardic and anemic with a hgb of 6.5, INR >29.6, PTT 147.7, total bili 7.5, direct bili 4.8, indirect bili 2.7, AST 75, ALT 131, lipase 91. UA found large amount of blood and bilirubin. He was diagnosed with influenza a week or two ago and within the past week began experiencing kaykay colored steatorrhea with diffuse RUQ abdominal discomfort. He states he began taking pepto bismol which helped his symptoms, following this he developed the appearance of melena and believed this was related to his pepto bismol use. CT abdomen/palvis without contrast demonstrated extrahepatic biliary dilatation without visualized stone, and right transverse colon with wall thickening and adjacent stranding. He has never had an EGD/Colonoscopy. Gallbladder ultrasound demonstrated diffuse wall thickening, luminal bile/sludge , CVD dilatation to 8.1 mm; this was stated as a technically limited exam due to bowel gas interference. He has no personal history of cancer. He does report positive family history of cancer with paternal uncle diagnosed with an "abdominal" cancer age 67, paternal grandfather passing away with an unknown cancer, and two maternal aunts passing away in their 40's of lung cancer. He has had 2 LE DVT's, the second occurring after stopping his coumadin. He has been on indefinite coumadin therapy since that time for "a number of years" (alternates 5 mg and 2.5 mg coumadin). He cannot recall his last lab check for PT/INR. Patients mother has a history of DVT and patients son has history of DVT/PE starting at young age in his 30's, he is non compliant with his AC. He denies recent weight loss or appetite changes, reports unintended weight gain and has been taking OTC fat burning dietary supplement. Past Med Surg Social Fam HX - Past Medical History Medical history: fibromyalgia, GERD, osteoporosis, thyroid disease Psychiatric history: anxiety, depression - Social History Smoking Status: Never smoker Smokeless Tobacco Status: No Alcohol use: none Drug use: none - Family History Mother Living Status: Age at : 74 Cause of : CHF Hx Family Cardiac Disorders: Yes (CHF, CVA) Hx Family Endocrine Disorder: Yes (DM) Oncology - Exam - Constitutional Vitals: Temp Pulse Resp BP Pulse Ox 98.9 F 112 16 166/89 98 12/07/17 09:31 12/07/17 09:31 12/07/17 09:31 12/07/17 09:31 12/07/17 09:31 Oncology - Results Labs: 12/07/17 12/07/17 12/07/17 04:58 02:19 02:01 WBC RBC Hgb 6.9 L Hct 19.9 L MCV MCH MCHC RDW Plt Count MPV Immature Gran % Seg Neutrophils % Lymphocytes % Monocytes % Eosinophils % Basophils % Neutrophils # Lymphocytes # Monocytes # Eosinophils # Basophils # Nucleated RBCs/100 WBC PT INR APTT Sodium 135 L Potassium 4.0 Chloride 103 Carbon Dioxide 25 BUN 26 H Creatinine 1.01 Est GFR ( Amer) > 60 Est GFR (Non-Af Amer) > 60 BUN/Creatinine Ratio 26 Glucose 112 H POC Glucose Calculated Osmolality 286 Calcium 8.1 L Venous Ioniz Calcium 1.01 L Phosphorus 3.1 Magnesium 1.6 Total Bilirubin 7.5 H AST 62 H ALT 104 H Alkaline Phosphatase 367 H Serum Total Protein 5.1 L Albumin 3.0 L Globulin 2.1 L Albumin/Globulin Ratio 1.4 Hep Bs Antigen 12/07/17 12/07/17 12/07/17 02:01 02:01 02:01 WBC 10.3 RBC 2.42 L Hgb 7.1 L Hct 21.7 L MCV 89.7 MCH 29.3 MCHC 32.7 RDW 19.0 H Plt Count 169 MPV 10.1 Immature Gran % 4.7 H Seg Neutrophils % 60.6 Lymphocytes % 23.4 Monocytes % 9.5 Eosinophils % 1.4 Basophils % 0.4 Neutrophils # 6.2 Lymphocytes # 2.4 Monocytes # 1.0 Eosinophils # 0.1 Basophils # 0.0 Nucleated RBCs/100 WBC 1.9 H PT 19.4 H D INR 1.8 D APTT 22.3 L D Sodium Potassium Chloride Carbon Dioxide BUN Creatinine Est GFR ( Amer) Est GFR (Non-Af Amer) BUN/Creatinine Ratio Glucose POC Glucose Calculated Osmolality Calcium Venous Ioniz Calcium Phosphorus Magnesium Total Bilirubin AST ALT Alkaline Phosphatase Serum Total Protein Albumin Globulin Albumin/Globulin Ratio Hep Bs Antigen Nonreactive 12/07/17 12/06/17 02:01 21:49 WBC RBC Hgb 6.9 L Hct 21.3 L MCV MCH MCHC RDW Plt Count MPV Immature Gran % Seg Neutrophils % Lymphocytes % Monocytes % Eosinophils % Basophils % Neutrophils # Lymphocytes # Monocytes # Eosinophils # Basophils # Nucleated RBCs/100 WBC PT INR APTT Sodium Potassium Chloride Carbon Dioxide BUN Creatinine Est GFR ( Amer) Est GFR (Non-Af Amer) BUN/Creatinine Ratio Glucose POC Glucose 145 H Calculated Osmolality Calcium Venous Ioniz Calcium Phosphorus Magnesium Total Bilirubin AST ALT Alkaline Phosphatase Serum Total Protein Albumin Globulin Albumin/Globulin Ratio Hep Bs Antigen
[2017-12-07] MEDS: *HR* Metoprolol 5 MG/5 ML VIAL IVP PRN (11:29)
[2017-12-07] MEDS: 0.9 % Sodium Chloride 1,000 ML IVC SCH ×2 (11:32→21:07)
--- NOTE | 2017-12-07 12:26 | Internal Med Progress Note ---
Date of Encounter: 12/07/17 Time of Encounter: 12:39 - Assessment and plan (1) Anemia Current Visit: Yes Status: Acute Assessment and plan: Acute blood loss, likely lower GI bleed. Precipitated by elevated INR, lab on admission reads INR >29. INR corrected wth FFP, vitamin K, 2 units PRBC Surgery consulted, recommendations appreciated, Continue to monitor H&H Q8H monitor vitals closely Currently hypertensive does not appear hypovolemic. Qualifiers: Anemia type: unspecified type Qualified Code(s): D64.9 - Anemia, unspecified (2) Hypertension Current Visit: Yes Status: Acute Assessment and plan: At home patient takes lisinopril and norvasc Patient is NPO and currently hypertensive and tachycardic with BP ranging 150s- 180s/80s-105. He has HR from 100-119. He will need IV medication until can do NPO medications. Will schedule IV lopressor q6h and also prn since both hypertensive and tachycardic. Patient also in pain and may be contributing, will help control of pain and monitor. Qualifiers: Hypertension type: essential hypertension Qualified Code(s): I10 - Essential (primary) hypertension (3) Hyperbilirubinemia Current Visit: Yes Status: Acute (4) GI bleed Current Visit: Yes Status: Acute Assessment and plan: Plan as above. Qualifiers: GI bleed type/associated pathology: unspecified gastrointestinal hemorrhage type Qualified Code(s): K92.2 - Gastrointestinal hemorrhage, unspecified (5) Jaundice Current Visit: Yes Status: Acute (6) Supratherapeutic INR Current Visit: Yes Status: Acute (7) Transaminitis Current Visit: Yes Status: Acute Assessment and plan: GI consulted recommendations appreciated. Patient does take chronic pain medications at home including percocet per patient. CT scan: There was moderate intra and extrahepatic biliary ductal dilation without stone that was seen on CT scan. Gall bladder ultrasound: GBW thickened with bile sludge. common bile duct was 8.1 mm. Viral hepatitis panel pending, APAP level pending.. (8) History of DVT (deep vein thrombosis) Current Visit: Yes Status: Acute Assessment and plan: SCDs on patient Because of severe bleed, patient is poor anticoagulation candidate and was stopped on coumadin and INR was reversed. (9) DVT prophylaxis Current Visit: Yes Status: Acute Assessment and plan: SCDs - Time Spent With Patient Total time spent is greater than 50% in coordination of care (as documented) at patient's floor/unit and/or counseling patient: - Subjective Interval history: Patient having still some dizziness. He does not have any CP or SOB though he did prior to admission. States he has some lower quadrant abdominal pain but not severe. Denies fevers/chills, n/v, diarrhea. No recent BRBPR per patient. - Constitutional Vitals: Temp Pulse Resp BP Pulse Ox 98.9 F 100 18 166/87 98 12/07/17 09:31 12/07/17 12:06 12/07/17 11:33 12/07/17 12:06 12/07/17 11:33 General appearance: Present: cooperative, A&O X 3, answers questions appropriately Exam: Gen: NAD, AAOx3 CVS: tachycardic Lungs: CTAB Christiano: soft, +TTP in RLQ and LLQ. No peritoneal signs, no rebound rigidity, non -distended Skin: jaundiced HEENT: conjunctival pallor and scleral icterus as well. Internal Medicine: Result - Labs CBC & Chem 7: 12/07/17 04:58 12/07/17 02:01 Labs: Short CBC 12/07/17 12/07/17 12/07/17 Range/Units 02:01 02:01 04:58 WBC 10.3 (4.3-11.1) K/mcL Hgb 6.9 L 7.1 L 6.9 L (12.9-16.9) g/dL Hct 21.3 L 21.7 L 19.9 L (37.5-50.1) % Plt Count 169 (140-400) K/mcL Neutrophils # 6.2 (1.6-8.9) K/mcL BMP 12/07/17 02:01 Sodium 135 L Potassium 4.0 Chloride 103 Carbon Dioxide 25 BUN 26 H Creatinine 1.01 Glucose 112 H Calcium 8.1 L Liver Function 12/07/17 Range/Units 02:01 Total Bilirubin 7.5 H (0.3-1.0) mg/dL AST 62 H (13-39) Units/L ALT 104 H (7-52) Units/L Alkaline Phosphatase 367 H (34-104) Units/L Albumin 3.0 L (3.5-5.7) g/dL - ABG Interpretation ABG results: PT/INR, D-dimer PT 19.4 Seconds (9.4-12.1) H D 12/07/17 02:01 - VTE Documentation of Mechanical Device: Intermittent pneumatic compression device Consult Discharge Plan - Plan Referrals: Shawn Vazquez Jr, MD [Primary Care Provider] -
--- NOTE | 2017-12-07 13:18 | Gastroenterology Consult Note ---
<Lucy Velasco - Last Filed: 12/07/17 13:12> Date of Encounter: 12/07/17 Time of Encounter: 11:00 - Assessment and plan (1) GI bleed Current Visit: Yes Status: Acute Assessment and plan: Pt reports bright red rectal bleeding and epigastric pain. He was found to have a Hgb 6.8. Coumadin is on hold. Will proceed with EGD today and colonoscopy tomorrow. Qualifiers: GI bleed type/associated pathology: unspecified gastrointestinal hemorrhage type Qualified Code(s): K92.2 - Gastrointestinal hemorrhage, unspecified (2) Anemia Current Visit: Yes Status: Acute Assessment and plan: plan for EGD today to r/o esophagitis, gastritis, duodenitis, PUD, MW tear, or AVM. Keep patient NPO for now. Colonoscopy tomorrow to rule out AVM, bleeding polyp Qualifiers: Anemia type: unspecified type Qualified Code(s): D64.9 - Anemia, unspecified (3) Transaminitis Current Visit: Yes Status: Acute Assessment and plan: MRCP ordered likely has CBD stone, will plan for EUS and possible ERCP tomorrow. (4) Abnormal CT of the abdomen Current Visit: Yes Status: Acute Assessment and plan: CT abdomen shows colonic thickening, likely colitis but he needs a colonoscopy to rule out mass. - Time Spent With Patient Total time spent is greater than 50% in coordination of care (as documented) at patient's floor/unit and/or counseling patient: GI History of Present Illness - Data of Consult Patient: new to practice Consult date: 12/07/17 Requesting Physician: Megan Rowell - Consult Narrative Reason for consult: GI bleed, anemia, elevated LFTs History of present illness: Mr. 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 He presented to the emergency department with weakness and lightheadedness for the past week. He reports he was unable to stand yesterday. Patient states that he feels weak. Patient states that he had some abdominal pain last Monday with associated diarrhea which has since resolved. Patient noted bright red blood in his stool earlier today. Denies history of GI bleeding or colonoscopies in the past. Denies history of colon cancer. He denies any chest pain but does admit to tachycardia with exertion. ED evaluation included basic labs including coagulation panel were patient's INR was noted to be supratherapeutic. Patient was given vitamin K, FFP, and [address] scan abd/ pelvis showed moderate intra-next hepatic biliary duct dilation without a common duct calcified stone. Segment of the proximal transverse colon with moderate wall thickening and adjacent stranding and fluid focal colitis versus diverticulitis versus neoplasm. procedures: denies NSAIDS: denies anticoagulants: coumadin Past Med Surg Social Fam HX - Past Medical History Medical history: fibromyalgia, GERD, osteoporosis, thyroid disease Psychiatric history: anxiety, depression - Social History Smoking Status: Never smoker Smokeless Tobacco Status: No Alcohol use: none Drug use: none - Family History Mother Living Status: Age at : 74 Cause of : CHF Hx Family Cardiac Disorders: Yes (CHF, CVA) Hx Family Endocrine Disorder: Yes (DM) Review of Systems: GI: as per [facility] GENERAL: denies fever, has some chills EYES: denies yellow discoloration ENT: denies pain with swallowing or difficulty swallowing CARDIO: see HPI RESP: increasing Shortness of breath with exertion : reports dark urine NEURo: weakness HEME: Denies any bruising MS: chronic back and joint pain. DERM: denies rash or itching PSYCH: Denies history of anxiety or depression - Constitutional Vitals: Temp Pulse Resp BP Pulse Ox 98.3 F 107 18 173/105 100 12/07/17 12:25 12/07/17 12:25 12/07/17 12:25 12/07/17 12:25 12/07/17 12:25 Results - Labs CBC & Chem 7: 12/07/17 04:58 12/07/17 02:01 Labs: Last Result Calcium 8.1 mg/dL (8.6-10.3) L 12/07/17 02:01 Troponin I < 0.03 ng/mL (< 0.04) 12/06/17 16:38 Entire Visit Hgb 6.9 g/dL (12.9-16.9) L 12/07/17 04:58 Hct 19.9 % (37.5-50.1) L 12/07/17 04:58 PT 19.4 Seconds (9.4-12.1) H D 12/07/17 02:01 Total Bilirubin 7.5 mg/dL (0.3-1.0) H 12/07/17 02:01 AST 62 Units/L (13-39) H 12/07/17 02:01 ALT 104 Units/L (7-52) H 12/07/17 02:01 Amylase 29 Units/L (29-103) 12/06/17 16:38 Lipase 91 Units/L (11-82) H 12/06/17 16:38 Acetaminophen < 10 mcg/mL (10-20) L 12/06/17 16:38 - ABG ABG results: PT/INR, D-dimer PT 19.4 Seconds (9.4-12.1) H D 12/07/17 02:01 Consult Discharge Plan - Plan Referrals: Shawn Vazquez Jr, MD [Primary Care Provider] - 12/14/17 10:00 am <Steve Calvillo - Last Filed: 12/07/17 18:58> Date of Encounter: 12/07/17 Time of Encounter: 17:00 - Time Spent With Patient Total time spent is greater than 50% in coordination of care (as documented) at patient's floor/unit and/or counseling patient: GI History of Present Illness - Data of Consult Requesting Physician: Megan Rowell - Consult Narrative History of present illness: Mr. Pearson is a 67 year old male - Constitutional Vitals: Temp Pulse Resp BP Pulse Ox 98.3 F 93 18 191/111 98 12/07/17 12:25 12/07/17 18:03 12/07/17 18:03 12/07/17 18:03 12/07/17 18:03 Results - Labs CBC & Chem 7: 12/07/17 04:58 12/07/17 02:01 Labs: Last Result Calcium 8.1 mg/dL (8.6-10.3) L 12/07/17 02:01 Troponin I < 0.03 ng/mL (< 0.04) 12/06/17 16:38 Entire Visit Hgb 6.9 g/dL (12.9-16.9) L 12/07/17 04:58 Hct 19.9 % (37.5-50.1) L 12/07/17 04:58 PT 19.4 Seconds (9.4-12.1) H D 12/07/17 02:01 Total Bilirubin 7.5 mg/dL (0.3-1.0) H 12/07/17 02:01 AST 62 Units/L (13-39) H 12/07/17 02:01 ALT 104 Units/L (7-52) H 12/07/17 02:01 Amylase 29 Units/L (29-103) 12/06/17 16:38 Lipase 91 Units/L (11-82) H 12/06/17 16:38 Acetaminophen < 10 mcg/mL (10-20) L 12/06/17 16:38 - ABG ABG results: PT/INR, D-dimer PT 19.4 Seconds (9.4-12.1) H D 12/07/17 02:01 - Impressions Impressions Abdomen MRI 12/07/17 09:42 IMPRESSION: Marked biliary and pancreatic ductal dilatation to the level of the ampulla. No intraductal filling defect seen. Findings are suspicious for a subtle ampullary mass. Suggest correlation with ERCP. The findings were sent to the Radiology Results Communication [facility] at 2:40 pm on 12/07/2017 to be communicated to a licensed caregiver. D/ / Lit Castro MD / Lit Castro MD Interpreting Provider: Lit Castro MD - Attending Attestation I have personally performed a face to face evaluation on this patient. I have reviewed and agree with the care plan. History and Exam by me shows: Pt seen. Patient admitted because of supratherapeutic INR with the anemia and black stool. Also has double duct sign with the bilirubin of more than 7. CT and MRI is negative for any obvious mass. 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 Biopsies done. Impression: Patient with ampullary mass with obstructive jaundice. Recommendation: Follow path patient to be seen by Dr. Russell. Patient to to have PTC done by IR as cannot see major papilla because of the mass
[2017-12-07] MEDS: OXYCODONE Oral CONC 10 MG/0.5 ML ORAL.SYG SL SCH ×3 (14:39→21:09)
[2017-12-07] MEDS: Pantoprazole 40 MG in 0.9 % Sodium Chloride Mini Bag 100 ML IVC SCH ×2 (14:40→21:02)
[2017-12-07] MEDS ORDERED: *HR* Phytonadione 5 MG TABLET PO ONE (15:19)
--- NOTE | 2017-12-07 15:58 | Electrocardiograph Report ---
[address] [address] Test Date: 2017-12-06 Pat Name: Venu Pearson Department: 103 Room: 3A21 Gender: M Revival Clerk: LUCIANO : 1950 Requested By: Gregory Rand Order Number: [id number] Reading MD: Shante Gonsalez Measurements Intervals [place] Rate: 111 P: 59 HI: 206 QRS: 28 QRSD: 89 T: 64 QT: 306 QTc: 372 Interpretive Statements SINUS TACHYCARDIA NONSPECIFIC T-WAVE ABNORMALITY ABNORMAL RHYTHM ECG Electronically Signed On 12-07-2017 15:56:27 EDT by Shante Gonsalez
[2017-12-07] MEDS ORDERED: *HR* FentaNYL (PF) 100 MCG/2 ML VIAL ONE (17:14)
[2017-12-07] MEDS ORDERED: *HR* Midazolam HCl 5 MG/5 ML VIAL IVP ONE (17:14)
[2017-12-07] MEDS ORDERED: Simethicone 40 MG/0.6 ML MLS IR ONE (17:21)
[2017-12-07] MEDS ORDERED: Tetracaine/Benzocaine/Butamben 200MG/SPRAY (100SPY/BOT) MM ONE (17:21)
[2017-12-07] MEDS ORDERED: *HR* FentaNYL (PF) 100 MCG/2 ML VIAL IVP ONE (17:21)
[2017-12-07] MEDS ORDERED: *HR* Midazolam HCl 2 MG/2 ML VIAL IVP ONE (17:21)
--- NOTE | 2017-12-07 17:26 | Pre-Sedation Evaluation ---
Pre-sedation evaluation - Pre-sedation checklist Date of procedure: 12/07/17 Procedure: egd Recent Vitals: Last Vital Signs Temp 98.3 F 12/07/17 12:25 Pulse 120 12/07/17 17:24 Resp 18 12/07/17 17:24 BP 199/100 12/07/17 17:24 Pulse Ox 99 12/07/17 17:24 H&P (including ROS) documented in medical record: Yes Previous reaction to sedatives/anesthetics: No Dietary Status: NPO after Midnight Dentition: No loose teeth or bridges ASA Classification *see protocol: CLASS III-Severe systemic disease Plan of Care: Pt appropriate candidate for procedure/moderate/conscious sedation , Risks/benefits of procedure/sedation discussed w/ patient/family
[2017-12-07] MEDS ORDERED: 0.9 % Sodium Chloride 500 ML IVC SCH (17:30)
[2017-12-07] MEDS ORDERED: *HR* Metoprolol 5 MG/5 ML VIAL IVP ONE ×2 (17:35→17:36)
--- NOTE | 2017-12-07 19:56 | Event Note ---
Date of Encounter: 12/07/17 Time of Encounter: 09:55 GI bleed (Brisk UGI bleed vs LGI Bleed) Gross red blood per rectum noted 12/06/2017 saturating bowl. Symptomatic anemia; initial hemoglobin 6.5g/dL. Hgb 6.9 this AM after 2u pRBCs Sinus tachycardia in 120s with normal-elevated BP; unstable. On Warfarin with initial INR supratherapeutic (>29); 1.8 after FFP & Vit-K. H/ O consulted by primary team. Plan: will defer associated care to GI service as all measures we would offer are being presently pursued by GI team. Re-consult if distinct surgical need becomes apparent. HPI: This is a 67-year-old male with past medical history of recurrent DVT is on Coumadin who is admitted for acute gross red blood per rectum and symptomatic anemia. Per patient, he has had gradually worsening fatigue over the last several weeks. Patient states it just feels like he is tired all the time. Saw his primary care provider, Dr. Vazquez, on Monday of last week; patient recalls no distinct intervention. Patient also describes a vague suprapubic cramping sensation during the last week or so. Also developing diffuse pruritus. Denies any nausea or vomiting prior to hospitalization. Over the last 2 days, patient states he began to feel short of breath, the heart palpitations, and lightheaded when he would get up to walk. Patient had one stool yesterday in the early afternoon that featured with blood coated stools prior to wiping. Patient states blood saturated bowl. This coupled with the presyncopal sensation prompted patients presentation to the ED for further evaluation. States has had melena in the past, but not lately (no eval specifically for this). ROS: Patient denies any fevers, chills, sweats, headaches, chest pain, constipation during present course, dysuria, hematuria, abnormal urethral discharge, testicular pain, or change in chronic pedal edema. Denies noticing any skin color change prior to admission. ED: patient initially tachycardic in the ED, however other vitals are stable. Initial labs include white cell count of 13.2, hemoglobin of 6.5 (previously 14.5 in 2014), hct of 19.1, platelet count of 285, INR greater than 29.6, APTT 147.7, normal electrolytes (see results), total bilirubin of 7.5, direct bilirubin of 4.8, indirect bilirubin of 2.7, AST 75, ALT 131, ALP 45, troponin less than 0.03, and lipase 91. Acetaminophen level less than 10. HBsAg nonreactive. UA significant for cloudy gross red quality, large blood, large bilirubin. CT done in the ER demonstrated extrahepatic biliary dilatation without visualized stone, and right transverse colon with wall thickening and adjacent stranding. Follow-up right upper quadrant ultrasound demonstrated diffuse wall thickening, luminal bile/sludge, CBD dilatation to 8.1 mm; this was stated as a technically limited exam due to bowel gas interference. Admitted to ICU with surgical consult for assessment of GI bleed. So far has received 2 units of packed red blood cells and 2 units of FFP. LABS: reviewed IMAGING: reviewed VITAL SIGNS: Reviewed. Tachycardic in the 120s; sinus on the monitor. GENERAL: comfortably supine, no acute distress, answers questions appropriately. HEENT: icteric sclerae, oropharynx pink/moist, no JVD noted.] CV: RRR, no murmurs or gallops, no JVD RESPIRATORY: CTAB without wheezes, rales, or rhonchi ABD: grossly normal, active sounds, soft, lower quadrants tender, non-tender to RUQ, negative Forbes's sign, no rebound/distention/rigidity, no peritoneal signs. EXTREMITY: grossly normal motor function, no pedal edema, peripheral pulses 2+ b /l NEUROLOGIC EXAM: AOx3, obeys commands, no speech deficits. PSYCHIATRIC: normal mood and affect SKIN: mild generalized jaundice
[2017-12-08] MEDS ORDERED: 0.9 % Sodium Chloride 250 ML ONE ×4 (01:36→23:19)
[2017-12-08] MEDS: OXYCODONE Oral CONC 10 MG/0.5 ML ORAL.SYG SL SCH ×6 (01:37→21:13)
[2017-12-08] MEDS: Pantoprazole 40 MG in 0.9 % Sodium Chloride Mini Bag 100 ML IVC SCH ×4 (03:47→21:13)
[2017-12-08 04:40] LABS: Hepatitis A Antibody IgM Nonreactive (Nonreactive); Hepatitis B Core IgM Nonreactive (Nonreactive); Hepatitis C Virus Antibody Nonreactive (Nonreactive)
[2017-12-08 05:00] LABS: Basophils % 0.5 %; Eosinophils # 0.2 K/mcL (0.0-0.6); Eosinophils % 2.9 %; Hematocrit 20.3 % (37.5-50.1); Hemoglobin 6.6 g/dL (12.9-16.9); Immature Granulocytes % 2.9 % (0-4); Lymphocytes # 1.2 K/mcL (0.6-4.6); Lymphocytes % 20.6 %; Mean Corpuscular HGB Conc 32.5 g/dL (31.6-35.5); Mean Corpuscular Hemoglobin 28.4 pg (28.0-33.3); Mean Corpuscular Volume 87.5 fL (83.0-100.0); Monocytes # 0.6 K/mcL (0.0-1.3); Monocytes % 9.7 %; Neutrophils # 3.7 K/mcL (1.6-8.9); Platelet Count 182 K/mcL (140-400); Red Blood Count 2.32 M/mcL (4.19-5.50); Red Cell Distribution Width 19.7 % (11.5-14.5); Segmented Neutrophils % 63.4 %
[2017-12-08 05:22] LABS: Alanine Aminotransferase 84 Units/L (7-52); Albumin/Globulin Ratio 1.5 (1.1-2.2); Alkaline Phosphatase 316 Units/L (34-104); Aspartate Amino Transferase 63 Units/L (13-39); BUN/Creatinine Ratio 19 (6-26); Bilirubin,Total 9.1 mg/dL (0.3-1.0); Blood Urea Nitrogen 18 mg/dL (8-23); Calcium 8.6 mg/dL (8.6-10.3); Carbon Dioxide 26 mEq/L (23-29); Chloride 107 mEq/L (98-107); Glucose 94 mg/dL (70-105); Osmolality,Calculated 290 (280-300); Potassium 3.7 mEq/L (3.5-5.1); Sodium 139 mEq/L (136-145); eGFR For African Americans > 60 (> 60); eGFR For Non-African Americans > 60 (> 60)
[2017-12-08 07:51] LABS: INR 1.1; Prothrombin Time 11.4 Seconds (9.4-12.1)
[2017-12-08] MEDS ORDERED: Heparin 1,000 UNITS/500 mL 500 ML ONE (07:53)
[2017-12-08] MEDS ORDERED: 0.9 % Sodium Chloride 500 ML ONE ×2 (07:54→07:55)
[2017-12-08] MEDS ORDERED: *HR* Midazolam HCl 2 MG/2 ML VIAL IVP ONE ×4 (08:00→09:15)
[2017-12-08] MEDS ORDERED: *HR* FentaNYL (PF) 100 MCG/2 ML VIAL IVP ONE ×3 (08:00→08:58)
[2017-12-08] MEDS ORDERED: Ampicillin/Sulbactam 3,000 MG in 0.9 % Sodium Chloride Mini Bag 100 ML IVPB ONE (08:01)
[2017-12-08] MEDS ORDERED: Piperacillin/Tazobactam 3.375 GM in 0.9 % Sodium Chloride Mini Bag 100 ML IVPB ONE (08:19)
[2017-12-08] MEDS ORDERED: *HR* Midazolam HCl 2 MG/2 ML VIAL ONE ×2 (08:36→08:59)
[2017-12-08] MEDS ORDERED: *HR* FentaNYL (PF) 100 MCG/2 ML VIAL ONE ×2 (08:36→08:59)
[2017-12-08 08:41] LABS: Carcinoembryonic Antigen 1.9 ng/mL (Less than 5.0)
--- NOTE | 2017-12-08 08:43 | General Surgery Consult Note ---
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 service on upper endoscopy. Current bilirubin 9.1, up from 7.5 on admission. Plan: - Trans-hepatic biliary drainage per IR; hopefully this improves hyperbilirubinemia - Plan for Whipple resection once liver function has improved; goal of <4 total bilirubin. - Will need to monitor LFTs/Bilirubins daily in the meantime (2) GI bleed Current Visit: Yes Status: Acute being evaluated by GI team. Qualifiers: GI bleed type/associated pathology: unspecified gastrointestinal hemorrhage type Qualified Code(s): K92.2 - Gastrointestinal hemorrhage, unspecified History of Present Illness Consult date: 12/07/17 (GI - Dr. Calvillo) History of present illness: *Initially consulted for gastrointestinal bleed and symptomatic anemia along with G.I. service; GIS service initiated complete workup which, at the time, precluded surgical team necessity. During upper endoscopy, GI noted an ampullary mass prompting re-consultation of surgical services.* Detailed HPI below retrieved from previous event note done for original surgical consult 12/07/2017. 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 Per patient, he has had gradually worsening fatigue over the last several weeks. Patient states it just feels like he is tired all the time. Saw his primary care provider, Dr. Vazquez, on Monday of last week; patient recalls no distinct intervention. Patient also describes a vague suprapubic cramping sensation during the last week or so. Also developing diffuse pruritus. Denies any nausea or vomiting prior to hospitalization. Over the last 2 days, patient states he began to feel short of breath, the heart palpitations, and lightheaded when he would get up to walk. Patient had one stool yesterday in the early afternoon that featured with blood coated stools prior to wiping. Patient states blood saturated bowl. This coupled with the presyncopal sensation prompted patients presentation to the ED for further evaluation. States has had melena in the past, but not lately (no eval specifically for this). ROS: Patient denies any fevers, chills, sweats, headaches, chest pain, constipation during present course, dysuria, hematuria, abnormal urethral discharge, testicular pain, or change in chronic pedal edema. Denies noticing any skin color change prior to admission. ED: patient initially tachycardic in the ED, however other vitals are stable. Initial labs include white cell count of 13.2, hemoglobin of 6.5 (previously 14.5 in 2015), hct of 19.1, platelet count of 285, INR greater than 29.6, APTT 147.7, normal electrolytes (see results), total bilirubin of 7.5, direct bilirubin of 4.8, indirect bilirubin of 2.7, AST 75, ALT 131, ALP 45, troponin less than 0.03, and lipase 91. Acetaminophen level less than 10. HBsAg nonreactive. UA significant for cloudy gross red quality, large blood, large bilirubin. CT done in the ER demonstrated extrahepatic biliary dilatation without visualized stone, and right transverse colon with wall thickening and adjacent stranding. Follow-up right upper quadrant ultrasound demonstrated diffuse wall thickening, luminal bile/sludge, CBD dilatation to 8.1 mm; this was stated as a technically limited exam due to bowel gas interference. As stated above, GI initiated endoscopic evaluation elucidating an ampullary mass prompting them to re-consult surgical team. Past Med Surg Social Fam HX - Past Medical History Source: patient Medical history: fibromyalgia, GERD, osteoporosis, thyroid disease Psychiatric history: anxiety, depression - Social History Smoking Status: Never smoker Smokeless Tobacco Status: No Alcohol use: none Drug use: none - Family History Mother Living Status: Age at : 74 Cause of : CHF Hx Family Cardiac Disorders: Yes (CHF, CVA) Hx Family Endocrine Disorder: Yes (DM) Medications and Allergies ALPRAZolam [Xanax 0.25 MG Tablet] 0.25 mg PO BID PRN 12/06/17 [History] Desmopressin Acetate [Ddavp] 0.1 mg PO DAILY 12/06/17 [History] Levothyroxine [Synthroid] 75 mcg PO 0630 12/06/17 [History] Lisinopril [Zestril] 10 mg PO DAILY 12/06/17 [History] Mirtazapine [Remeron] 15 mg PO HS 12/06/17 [History] OxyCODONE/APAP 10/325 [Percocet 10/325 MG] 1 tab PO QID 12/06/17 [History] Oxymorphone HCl [Oxymorphone HCl ER] 30 mg PO QID 12/06/17 [History] Risedronate Sodium [Actonel] 20 mg PO QWEEK 12/06/17 [History] Testosterone [Androderm] 1 patch TP DAILY 12/06/17 [History] Testosterone [Androgel] 1 appl TP DAILY 12/06/17 [History] Warfarin Sodium 2.5 mg PO Q48H 12/06/17 [History] Warfarin Sodium 5 mg PO Q48H 12/06/17 [History] amLODIPine [Norvasc] 5 mg PO DAILY 12/06/17 [History] 3 Allergy/AdvReac Type Severity Reaction Status Date / Time No Known Allergies Allergy Verified 12/06/17 18:50 Review of Systems All systems PM: The remainder of the systems were reviewed and are negative General Surgery Exam Initial Vital Signs Temp Pulse Resp BP Pulse Ox 98.4 F 121 18 134/88 96 12/06/17 16:11 12/06/17 16:11 12/06/17 16:11 12/06/17 16:11 12/06/17 16:11 Stable exam from 12/07/17 VITAL SIGNS: Reviewed. Tachycardic in the 120s; sinus on the monitor. GENERAL: comfortably supine, no acute distress, answers questions appropriately. HEENT: icteric sclerae, oropharynx pink/moist, no JVD noted.] CV: RRR, no murmurs or gallops, no JVD RESPIRATORY: CTAB without wheezes, rales, or rhonchi ABD: grossly normal, active sounds, soft, lower quadrants tender, non-tender to RUQ, negative Forbes's sign, no rebound/distention/rigidity, no peritoneal signs. EXTREMITY: grossly normal motor function, no pedal edema, peripheral pulses 2+ b /l NEUROLOGIC EXAM: AOx3, obeys commands, no speech deficits. PSYCHIATRIC: normal mood and affect SKIN: mild generalized jaundice Exam Initial Vital Signs Temp Pulse Resp BP Pulse Ox 98.4 F 121 18 134/88 96 12/06/17 16:11 12/06/17 16:11 12/06/17 16:11 12/06/17 16:11 12/06/17 16:11 Results - Labs 12/08/17 04:09 12/08/17 04:09 Abnormal lab results RBC 2.32 M/mcL (4.19-5.50) L 12/08/17 04:09 Hgb 6.6 g/dL (12.9-16.9) L 12/08/17 04:09 Hct 20.3 % (37.5-50.1) L 12/08/17 04:09 RDW 19.7 % (11.5-14.5) H 12/08/17 04:09 Nucleated RBCs/100 WBC 1.0 /100 WBC (0) H 12/08/17 04:09 APTT 22.3 Seconds (26.0-36.0) L D 12/07/17 02:01 Heparin Anti-Xa, Unfract 0.05 IU/mL (0.30-0.70) L 12/06/17 18:13 POC Glucose 100 mg/dL (70-99) H 12/08/17 05:35 Venous Ioniz Calcium 1.01 mmol/L (1.15-1.35) L 12/07/17 02:19 Total Bilirubin 9.1 mg/dL (0.3-1.0) H 12/08/17 04:09 Direct Bilirubin 4.8 mg/dL (0.0-0.2) H 12/06/17 16:38 Indirect Bilirubin 2.7 mg/dL (0.0-1.2) H 12/06/17 16:38 AST 63 Units/L (13-39) H 12/08/17 04:09 ALT 84 Units/L (7-52) H 12/08/17 04:09 Alkaline Phosphatase 316 Units/L (34-104) H 12/08/17 04:09 Serum Total Protein 5.0 g/dL (6.4-8.9) L 12/08/17 04:09 Albumin 3.0 g/dL (3.5-5.7) L 12/08/17 04:09 Globulin 2.0 g/dL (2.4-3.5) L 12/08/17 04:09 Lipase 91 Units/L (11-82) H 12/06/17 16:38 Ur Specimen Adequacy See below A 05/23/18 17:27 Urine Color Red (Yellow) A 12/06/17 17:27 Urine Clarity Cloudy (Clear) A 12/06/17 17:27 Ur Specific [place] 1.030 (1.010-1.025) H 12/06/17 17:27 Urine Protein 100 mg/dL (Neg-Trace) H 12/06/17 17: Urine Ketones Trace mg/dL (Negative) H 12/06/17 17:27 Urine Blood Large (Negative) H 12/06/17 17:27 Urine Bilirubin Large (Negative) H 12/06/17 17:27 Ur Leukocyte Esterase Small (Negative) H 12/06/17 17:27 Ur Culture Indicated? YES (NO) A 12/06/17 17: Acetaminophen < 10 mcg/mL (10-20) L 12/06/17 16:38 Diabetes panel 12/08/17 Range/Units 04:09 Sodium 139 (136-145) mEq/L Potassium 3.7 (3.5-5.1) mEq/L Chloride 107 (98-107) mEq/L Carbon Dioxide 26 (23-29) mEq/L BUN 18 (8-23) mg/dL Creatinine 0.94 (0.70-1.30) mg/dL Glucose 94 (70-105) mg/dL Calcium 8.6 (8.6-10.3) mg/dL AST 63 H (13-39) Units/L ALT 84 H (7-52) Units/L Alkaline Phosphatase 316 H (34-104) Units/L Albumin 3.0 L (3.5-5.7) g/dL Calcium panel 12/08/17 Range/Units 04:09 Calcium 8.6 (8.6-10.3) mg/dL Albumin 3.0 L (3.5-5.7) g/dL Pituitary panel 12/08/17 Range/Units 04:09 Sodium 139 (136-145) mEq/L Potassium 3.7 (3.5-5.1) mEq/L Chloride 107 (98-107) mEq/L Carbon Dioxide 26 (23-29) mEq/L BUN 18 (8-23) mg/dL Creatinine 0.94 (0.70-1.30) mg/dL Glucose 94 (70-105) mg/dL Calcium 8.6 (8.6-10.3) mg/dL Adrenal panel 12/08/17 Range/Units 04:09 Sodium 139 (136-145) mEq/L Potassium 3.7 (3.5-5.1) mEq/L Chloride 107 (98-107) mEq/L Carbon Dioxide 26 (23-29) mEq/L BUN 18 (8-23) mg/dL Creatinine 0.94 (0.70-1.30) mg/dL Glucose 94 (70-105) mg/dL Calcium 8.6 (8.6-10.3) mg/dL Total Bilirubin 9.1 H (0.3-1.0) mg/dL AST 63 H (13-39) Units/L ALT 84 H (7-52) Units/L Alkaline Phosphatase 316 H (34-104) Units/L Albumin 3.0 L (3.5-5.7) g/dL All other labs normal. Consult Discharge Plan - Plan Referrals: Shawn Vazquez Jr, MD [Primary Care Provider] - 12/14/17 10:00 am <Reynold Russell - Last Filed: 12/08/17 15:01> Date of Encounter: 12/08/17 Review of Systems All systems PM: The remainder of the systems were reviewed and are negative General Surgery Exam Initial Vital Signs Temp Pulse Resp BP Pulse Ox 98.4 F 121 18 134/88 96 12/06/17 16:11 12/06/17 16:11 12/06/17 16:11 12/06/17 16:11 12/06/17 16:11 Exam Initial Vital Signs Temp Pulse Resp BP Pulse Ox 98.4 F 121 18 134/88 96 12/06/17 16:11 12/06/17 16:11 12/06/17 16:11 12/06/17 16:11 12/06/17 16:11 Results - Labs 12/08/17 04:09 12/08/17 04:09 Abnormal lab results RBC 2.32 M/mcL (4.19-5.50) L 12/08/17 04:09 Hgb 6.6 g/dL (12.9-16.9) L 12/08/17 04:09 Hct 20.3 % (37.5-50.1) L 12/08/17 04:09 RDW 19.7 % (11.5-14.5) H 12/08/17 04:09 Nucleated RBCs/100 WBC 1.0 /100 WBC (0) H 12/08/17 04:09 APTT 22.3 Seconds (26.0-36.0) L D 12/07/17 02:01 Heparin Anti-Xa, Unfract 0.05 IU/mL (0.30-0.70) L 12/06/17 18:13 POC Glucose 100 mg/dL (70-99) H 12/08/17 12:36 Venous Ioniz Calcium 1.01 mmol/L (1.15-1.35) L 12/07/17 02:19 Total Bilirubin 9.1 mg/dL (0.3-1.0) H 12/08/17 04:09 Direct Bilirubin 4.8 mg/dL (0.0-0.2) H 12/06/17 16:38 Indirect Bilirubin 2.7 mg/dL (0.0-1.2) H 12/06/17 16:38 AST 63 Units/L (13-39) H 12/08/17 04:09 ALT 84 Units/L (7-52) H 12/08/17 04:09 Alkaline Phosphatase 316 Units/L (34-104) H 12/08/17 04:09 Serum Total Protein 5.0 g/dL (6.4-8.9) L 12/08/17 04:09 Albumin 3.0 g/dL (3.5-5.7) L 12/08/17 04:09 Globulin 2.0 g/dL (2.4-3.5) L 12/08/17 04:09 Lipase 91 Units/L (11-82) H 12/06/17 16:38 Ur Specimen Adequacy See below A 12/06/17 17: Urine Color Red (Yellow) A 12/06/17 17: Urine Clarity Cloudy (Clear) A 12/06/17 17:27 Ur Specific [place] 1.030 (1.010-1.025) H 12/06/17 17:27 Urine Protein 100 mg/dL (Neg-Trace) H 12/06/17 17:27 Urine Ketones Trace mg/dL (Negative) H 12/06/17 17:27 Urine Blood Large (Negative) H 05/23/18 17:27 Urine Bilirubin Large (Negative) H 12/06/17 17:27 Ur Leukocyte Esterase Small (Negative) H 12/06/17 17:27 Ur Culture Indicated? YES (NO) A 12/06/17 17:27 Acetaminophen < 10 mcg/mL (10-20) L 12/06/17 16:38 Diabetes panel 12/08/17 Range/Units 04:09 Sodium 139 (136-145) mEq/L Potassium 3.7 (3.5-5.1) mEq/L Chloride 107 (98-107) mEq/L Carbon Dioxide 26 (23-29) mEq/L BUN 18 (8-23) mg/dL Creatinine 0.94 (0.70-1.30) mg/dL Glucose 94 (70-105) mg/dL Calcium 8.6 (8.6-10.3) mg/dL AST 63 H (13-39) Units/L ALT 84 H (7-52) Units/L Alkaline Phosphatase 316 H (34-104) Units/L Albumin 3.0 L (3.5-5.7) g/dL Calcium panel 12/08/17 Range/Units 04:09 Calcium 8.6 (8.6-10.3) mg/dL Albumin 3.0 L (3.5-5.7) g/dL Pituitary panel 12/08/17 Range/Units 04:09 Sodium 139 (136-145) mEq/L Potassium 3.7 (3.5-5.1) mEq/L Chloride 107 (98-107) mEq/L Carbon Dioxide 26 (23-29) mEq/L BUN 18 (8-23) mg/dL Creatinine 0.94 (0.70-1.30) mg/dL Glucose 94 (70-105) mg/dL Calcium 8.6 (8.6-10.3) mg/dL Adrenal panel 12/08/17 Range/Units 04:09 Sodium 139 (136-145) mEq/L Potassium 3.7 (3.5-5.1) mEq/L Chloride 107 (98-107) mEq/L Carbon Dioxide 26 (23-29) mEq/L BUN 18 (8-23) mg/dL Creatinine 0.94 (0.70-1.30) mg/dL Glucose 94 (70-105) mg/dL Calcium 8.6 (8.6-10.3) mg/dL Total Bilirubin 9.1 H (0.3-1.0) mg/dL AST 63 H (13-39) Units/L ALT 84 H (7-52) Units/L Alkaline Phosphatase 316 H (34-104) Units/L Albumin 3.0 L (3.5-5.7) g/dL All other labs normal. - Attending Attestation I examined this patient and my medical decision-making was reviewed with the Resident Physician. I agree with the documented findings, disposition and treatment plan as described except to the extent set forth below. The patient is seen and evaluated in the endoscopy unit with and on morning rounds with resident. The patient appears to have severe obstructive jaundice secondary to a periampullary tumor. His bilirubin is elevated consistent with obstructive jaundice. He will receive transhepatic drainage today. I personally reviewed his CAT scan. There does not appear to be any metastatic disease. He is a candidate for Whipple resection. We will follow him closely in the hospital coordinate operative timing Reynold Russell MD FACS
[2017-12-08] MEDS ORDERED: 0.9 % Sodium Chloride 1,000 ML ONE (08:59)
--- NOTE | 2017-12-08 09:31 | Pre-Sedation Evaluation ---
Pre-sedation evaluation - Pre-sedation checklist Date of procedure: 12/08/17 Procedure: ptc Recent Vitals: Last Vital Signs Temp 98.4 F 12/08/17 06:36 Pulse 110 12/08/17 09:10 Resp 12 12/08/17 09:10 BP 159/101 12/08/17 09:10 Pulse Ox 96 12/08/17 09:10 H&P (including ROS) documented in medical record: Yes Previous reaction to sedatives/anesthetics: No Dietary Status: NPO after Midnight Dentition: No loose teeth or bridges ASA Classification *see protocol: CLASS III-Severe systemic disease Plan of Care: Pt appropriate candidate for procedure/moderate/conscious sedation , Risks/benefits of procedure/sedation discussed w/ patient/family
--- NOTE | 2017-12-08 09:33 | IR Procedure Note ---
Date of procedure: 12/08/17 Consent Obtained: Written consent Timeout: Correct patient and procedure verified, Time out performed, Skin prep completed Local anesthetic: Lidocaine 1% Indications: Biliary Obstruction Procedure Performed: PTC/PBD Was there an assistant commissioner present: No Results/Findings: Rt external biliary drainage, premature aborted procedure for severe pain Estimated blood loss (cc): 3 Complications: None; Tolerated procedure well Post Procedure Treatment Plan: Conitinue external drainage. Will re-attempt crossing obstruction Monday Specimen: None
--- NOTE | 2017-12-08 09:47 | Internal Med Progress Note ---
Date of Encounter: 12/08/17 Time of Encounter: 09:47 - Assessment and plan (1) Anemia Current Visit: Yes Status: Acute Assessment and plan: Acute blood loss, likely lower GI bleed. Precipitated by elevated INR, lab on admission reads INR >29. INR corrected wth FFP, vitamin K, 2 units PRBC Surgery consulted, recommendations appreciated, Continue to monitor H&H Q8H monitor vitals closely Will Transfuse additional PRBC today Qualifiers: Anemia type: unspecified type Qualified Code(s): D64.9 - Anemia, unspecified (2) Hypertension Current Visit: Yes Status: Acute Assessment and plan: At home patient takes lisinopril and norvasc Patient is NPO and currently hypertensive and tachycardic He will need IV medication until can do NPO medications. Continue Scheduled IV lopressor q6h and also prn since both hypertensive and tachycardic. Continue pain control, which is contributing to hypertension Qualifiers: Hypertension type: essential hypertension Qualified Code(s): I10 - Essential (primary) hypertension (3) Hyperbilirubinemia Current Visit: Yes Status: Acute (4) GI bleed Current Visit: Yes Status: Acute Assessment and plan: Plan as above. Qualifiers: GI bleed type/associated pathology: unspecified gastrointestinal hemorrhage type Qualified Code(s): K92.2 - Gastrointestinal hemorrhage, unspecified (5) Jaundice Current Visit: Yes Status: Acute (6) Supratherapeutic INR Current Visit: Yes Status: Acute (7) Transaminitis Current Visit: Yes Status: Acute Assessment and plan: GI consulted recommendations appreciated. Patient does take chronic pain medications at home including percocet per patient. CT scan: There was moderate intra and extrahepatic biliary ductal dilation without stone that was seen on CT scan. Gall bladder ultrasound: GBW thickened with bile sludge. common bile duct was 8.1 mm. Viral hepatitis panel negative (8) History of DVT (deep vein thrombosis) Current Visit: Yes Status: Acute Assessment and plan: SCDs on patient Because of severe bleed, patient is poor anticoagulation candidate and was stopped on coumadin and INR was reversed. (9) DVT prophylaxis Current Visit: Yes Status: Acute Assessment and plan: SCDs - Time Spent With Patient Total time spent is greater than 50% in coordination of care (as documented) at patient's floor/unit and/or counseling patient: - Subjective Interval history: No recent BRBPR per patient. Patient returned from IR guided - Constitutional Vitals: Temp Pulse Resp BP Pulse Ox 98.4 F 110 12 159/101 96 12/08/17 06:36 12/08/17 09:10 12/08/17 09:10 12/08/17 09:10 12/08/17 09:10 General appearance: Present: cooperative, A&O X 3, answers questions appropriately Exam: Gen: NAD HEENT: MMM, conjunctival pallor, scleral icterurs CVS: RRR Lungs: decreased breath sounds, no w/r/r Abd: soft, nt/nd, Drain intact, dark bilious fluid draining Ext: no edema Skin: jaundiced, pallor Internal Medicine: Result - Labs CBC & Chem 7: 12/08/17 04:09 12/08/17 04:09 Labs: Short CBC 12/08/17 Range/Units 04:09 WBC 5.8 (4.3-11.1) K/mcL Hgb 6.6 L (12.9-16.9) g/dL Hct 20.3 L (37.5-50.1) % Plt Count 182 (140-400) K/mcL Neutrophils # 3.7 (1.6-8.9) K/mcL BMP 12/08/17 04:09 Sodium 139 Potassium 3.7 Chloride 107 Carbon Dioxide 26 BUN 18 Creatinine 0.94 Glucose 94 Calcium 8.6 Liver Function 12/08/17 Range/Units 04:09 Total Bilirubin 9.1 H (0.3-1.0) mg/dL AST 63 H (13-39) Units/L ALT 84 H (7-52) Units/L Alkaline Phosphatase 316 H (34-104) Units/L Albumin 3.0 L (3.5-5.7) g/dL - ABG Interpretation ABG results: PT/INR, D-dimer PT 11.4 Seconds (9.4-12.1) 12/08/17 07:18 - Impressions Impressions Abdomen MRI 12/07/17 09:42 IMPRESSION: Marked biliary and pancreatic ductal dilatation to the level of the ampulla. No intraductal filling defect seen. Findings are suspicious for a subtle ampullary mass. Suggest correlation with ERCP. The findings were sent to the Radiology Results Communication Center at 2:40 pm on 12/07/2017 to be communicated to a licensed caregiver. D/ / Lit Castro MD / Lit Castro MD Interpreting Provider: Lit Castro MD - VTE Documentation of Mechanical Device: Intermittent pneumatic compression device Consult Discharge Plan - Plan Referrals: Shawn Vazquez Jr, MD [Primary Care Provider] - 12/14/17 10:00 am
[2017-12-08] MEDS: *HR* Metoprolol 5 MG/5 ML VIAL IVP PRN (09:56)
--- NOTE | 2017-12-08 13:15 | Oncology Inp Progress Note ---
<Cadence Jennings Jorge Luis - Last Filed: 12/08/17 15:29> Date of Encounter: 12/08/17 Time of Encounter: 12:30 (1) GI bleed Current Visit: Yes Status: Acute Assessment and plan: GIB likely precipitated by supratherapeutic INR/liver coagulopathy which was >29 , PTT 137 on admission. INR reversed s/p FFP and Vitamin K. Hgb remains low and not improving despite transfusions but stable, continue to closely monitor H&H. Transfusing 3 more units PRBC today. CT scan does note segment of right/ proximal transverse colon with moderate wall thickening as well as some adjacent stranding and fluid. this could be secondary to inflammatory response such as colitis/diverticulitis, however, malignancy is also in differential. Colonoscopy-on hold given other findings. CEA 1.9 Continue to hold coumadin H/O recurrent DVT's and remains at high risk now in the setting of potential malignancy- SCD's for DVT prevention. Closely monitor. 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 No bile flow was seen and the billiary/major papilla orifice was not identifiable. Pathology is pending. Obstructive jaundice-bilirubin increased to 9.1 [id number] biliary drainage placed per IR. Reviewed surgical consultation note-planning to continue to monitor bilirubin and plan for surgical intervention once bili improves with whipple procedure Discussed above findings and concern for malignancy with final path pending with patient at bedside today. Further adjuvant treatment options and prognosis/treatment intent to be discussed following staging workup-need CT chest/abdomen/pelvis with IV and oral contrast-patient wishing to wait on CT over weekend due to amount of abdominal pain presently. Patient overwhelmed with information and has asked that I call his brother Philip Pearson at [phone] to update him on clinical situation and ERCP results. CEA 1.6 CA 19-[address] Sykes to discuss ERCP findings further with Dr. Calvillo Please refer to Dr. Sykes's attestation below for additional details. - Constitutional Vitals: Vital Signs Temp Pulse Resp BP Pulse Ox 12/08/17 12:24 98.6 F 102 12 12/08/17 11:01 98.0 F 96 14 161/81 94 12/08/17 09:45 98.2 F 108 16 161/85 96 12/08/17 09:10 110 12 159/101 96 12/08/17 09:05 114 12 180/106 97 12/08/17 09:00 109 18 172/90 97 12/08/17 08:59 109 14 171/93 96 12/08/17 08:50 109 16 173/90 97 12/08/17 08:46 114 24 166/92 97 12/08/17 08:42 111 17 169/92 97 12/08/17 08:38 111 16 178/92 97 12/08/17 08:33 113 14 173/92 98 12/08/17 08:27 115 15 171/85 98 12/08/17 08:20 113 13 166/94 97 12/08/17 08:17 115 14 185/94 12/08/17 06:36 98.4 F 98 20 155/82 97 12/08/17 04:41 98.6 F 102 12 170/65 100 12/08/17 02:22 98.4 F 99 16 142/78 12/08/17 02:07 98.8 F 101 18 158/85 12/08/17 01:59 98.5 F 100 18 153/78 12/07/17 23:30 98.5 F 101 18 153/78 95 12/07/17 23:15 98.1 F 101 16 121/76 12/07/17 23:06 98.7 F 96 18 139/77 12/07/17 19:28 98.6 F 104 16 143/82 98 18 18:03 93 18 191/111 98 12/07/17 17:58 94 18 189/108 99 12/07/17 17:53 94 18 178/101 100 12/07/17 17:48 100 18 188/94 98 12/07/17 17:43 93 18 185/102 99 12/07/17 17:38 92 18 197/103 99 12/07/17 17:33 111 18 205/100 98 12/07/17 17:30 111 12/07/17 17:28 124 18 217/105 98 12/07/17 17:24 120 18 199/100 99 12/07/17 17:18 118 16 200/103 96 Intake and Output 12/07/17 12/08/17 12/08/17 23:59 07:59 15:59 Intake Total 550 / 550 700 / 700 0 / 0 Output Total 400 / 400 400 / 400 450 / 450 Balance 150 / 150 300 / 300 -450 / -450 Intake: IV Fluids 500 / 500 100 / 100 0.9 % Sodium Chloride 1,000 ML 400 / 400 @ 75 mls/hr IVC .[id number] [facility] Rx #:[id number] Protonix 40 MG In 0.9 % Sodium 100 / 100 100 / 100 Chloride (Mini-Bag +) 100 ML @ 20 mls/hr IVC .Q5H [facility] Rx#: [id number] Oral 0 / 0 0 / 0 0 / 0 Blood Product 50 / 50 600 / 600 0 / 0 Plasma Unit [id number] 300 / 300 Plasma Unit [id number] 50 / 50 300 / 300 Rbcs Leuko Poor As-3 2nd Unit 0 / 0 [id number] Output: Urine 400 / 400 400 / 400 450 / 450 Other: Meal Breakfast NPO # Voids 1 1 # Bowel Movements 1 Weight 99.8 kg Blood Glucose* 100 100 Patient Weight 12/08/17 23:59 Weight 99.8 kg Oncology: Obj Data - Labs CBC & Chem 7: 12/08/17 04:09 12/08/17 04:09 Labs: Laboratory Results - last 24 hr 12/07/17 12/08/17 12/08/17 02:01 01:24 04:09 WBC 5.8 RBC 2.32 L Hgb 6.6 L Hct 20.3 L MCV 87.5 MCH 28.4 MCHC 32.5 RDW 19.7 H Plt Count 182 MPV 10.0 Immature Gran % 2.9 Seg Neutrophils % 63.4 Lymphocytes % 20.6 Monocytes % 9.7 Eosinophils % 2.9 Basophils % 0.5 Neutrophils # 3.7 Lymphocytes # 1.2 Monocytes # 0.6 Eosinophils # 0.2 Basophils # 0.0 Nucleated RBCs/100 WBC 1.0 H PT INR Sodium Potassium Chloride Carbon Dioxide BUN Creatinine Est GFR ( Amer) Est GFR (Non-Af Amer) BUN/Creatinine Ratio Glucose POC Glucose 98 Calculated Osmolality Calcium Total Bilirubin AST ALT Alkaline Phosphatase Serum Total Protein Albumin Globulin Albumin/Globulin Ratio Carcinoembryonic Ag Hepatitis A IgM Ab Nonreactive Hep B Core IgM Ab Nonreactive Hepatitis C Ab Screen Nonreactive 12/08/17 12/08/17 12/08/17 04:09 05:35 07:18 WBC RBC Hgb Hct MCV MCH MCHC RDW Plt Count MPV Immature Gran % Seg Neutrophils % Lymphocytes % Monocytes % Eosinophils % Basophils % Neutrophils # Lymphocytes # Monocytes # Eosinophils # Basophils # Nucleated RBCs/100 WBC PT 11.4 INR 1.1 Sodium 139 Potassium 3.7 Chloride 107 Carbon Dioxide 26 BUN 18 Creatinine 0.94 Est GFR ( Amer) > 60 Est GFR (Non-Af Amer) > 60 BUN/Creatinine Ratio 19 Glucose 94 POC Glucose 100 H Calculated Osmolality 290 Calcium 8.6 Total Bilirubin 9.1 H AST 63 H ALT 84 H Alkaline Phosphatase 316 H Serum Total Protein 5.0 L Albumin 3.0 L Globulin 2.0 L Albumin/Globulin Ratio 1.5 Carcinoembryonic Ag 1.9 Hepatitis A IgM Ab Hep B Core IgM Ab Hepatitis C Ab Screen 12/08/17 12:36 WBC RBC Hgb Hct MCV MCH MCHC RDW Plt Count MPV Immature Gran % Seg Neutrophils % Lymphocytes % Monocytes % Eosinophils % Basophils % Neutrophils # Lymphocytes # Monocytes # Eosinophils # Basophils # Nucleated RBCs/100 WBC PT INR Sodium Potassium Chloride Carbon Dioxide BUN Creatinine Est GFR ( Amer) Est GFR (Non-Af Amer) BUN/Creatinine Ratio Glucose POC Glucose 100 H Calculated Osmolality Calcium Total Bilirubin AST ALT Alkaline Phosphatase Serum Total Protein Albumin Globulin Albumin/Globulin Ratio Carcinoembryonic Ag Hepatitis A IgM Ab Hep B Core IgM Ab Hepatitis C Ab Screen - Impressions Impressions Abdomen MRI 12/07/17 09:42 IMPRESSION: Marked biliary and pancreatic ductal dilatation to the level of the ampulla. No intraductal filling defect seen. Findings are suspicious for a subtle ampullary mass. Suggest correlation with ERCP. The findings were sent to the Radiology Results Communication [facility] at 2:40 pm on 12/07/2017 to be communicated to a licensed caregiver. D/ / Lit Castro MD / Lit Castro MD Interpreting Provider: Lit Castro MD Abdomen CT 12/08/17 00:00 IMPRESSION: Patient is status post percutaneous biliary drainage tube catheter placement without adverse abnormality noted. There does appear to be some improvement to the previously noted intra and extrahepatic biliary ductal dilatation from recent exams. There is stable dilatation of the pancreatic duct. 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 Patient has been consulted by surgery for possible Whipple's definite a procedure if there is no evidence of metastatic disease. Otherwise if he continues to bleed likely will need acute intervention /palliative surgery. Status post PTCA possible internalization of stents next week. I examined this patient and my medical decision-making was reviewed with the Advanced Practice Nurse, Cadence Jennings. I agree with the documented findings, disposition and treatment plan as described except to the extent set forth below. - Constitutional Vitals: Vital Signs Temp Pulse Resp BP Pulse Ox 12/08/17 15:59 98.1 F 107 12 155/76 96 12/08/17 12:24 98.6 F 102 12 12/08/17 11:01 98.0 F 96 14 161/81 94 12/08/17 09:45 98.2 F 108 16 161/85 96 12/08/17 09:10 110 12 159/101 96 12/08/17 09:05 114 12 180/106 97 12/08/17 09:00 109 18 172/90 97 12/08/17 08:59 109 14 171/93 96 12/08/17 08:50 109 16 173/90 97 12/08/17 08:46 114 24 166/92 97 12/08/17 08:42 111 17 169/92 97 12/08/17 08:38 111 16 178/92 97 12/08/17 08:33 113 14 173/92 98 12/08/17 08:27 115 15 171/85 98 12/08/17 08:20 113 13 166/94 97 12/08/17 08:17 115 14 185/94 12/08/17 06:36 98.4 F 98 20 155/82 97 12/08/17 04:41 98.6 F 102 12 170/65 100 12/08/17 02:22 98.4 F 99 16 142/78 12/08/17 02:07 98.8 F 101 18 158/85 12/08/17 01:59 98.5 F 100 18 153/78 12/07/17 23:30 98.5 F 101 18 153/78 95 12/07/17 23:15 98.1 F 101 16 121/76 12/07/17 23:06 98.7 F 96 18 139/77 12/07/17 19:28 98.6 F 104 16 143/82 98 12/07/17 18:03 93 18 191/111 98 12/07/17 17:58 94 18 189/108 99 12/07/17 17:53 94 18 178/101 100 12/07/17 17:48 100 18 188/94 98 12/07/17 17:43 93 18 185/102 99 12/07/17 17:38 92 18 197/103 99 12/07/17 17:33 111 18 205/100 98 12/07/17 17:30 111 12/07/17 17:28 124 18 217/105 98 12/07/17 17:24 120 18 199/100 99 12/07/17 17:18 118 16 200/103 96 Intake and Output 12/08/17 12/08/17 12/08/17 07:59 15:59 23:59 Intake Total 700 / 700 500 / 500 Output Total 400 / 400 875 / 875 Balance 300 / 300 -375 / -375 Intake: IV Fluids 100 / 100 Protonix 40 MG In 0.9 % Sodium 100 / 100 Chloride (Mini-Bag +) 100 ML @ 20 mls/hr IVC .Q5H [facility] Rx#: [id number] Oral 0 / 0 0 / 0 Blood Product 600 / 600 500 / 500 Plasma Unit [id number] 300 / 300 Plasma Unit [id number] 300 / 300 Rbcs Leuko Poor As-3 2nd Unit 500 / 500 [id number] Output: Urine 400 / 400 725 / 725 Wound Drainage 150 / 150 Right Medial Abdomen 150 / 150 Other: Meal NPO # Voids 1 Weight 99.8 kg Blood Glucose* 100 100 Patient Weight 12/08/17 23:59 Weight 99.8 kg Oncology: Obj Data - Labs CBC & Chem 7: 12/08/17 04:09 12/08/17 04:09 Labs: Laboratory Results - last 24 hr 12/07/17 12/08/17 12/08/17 02:01 01:24 04:09 WBC 5.8 RBC 2.32 L Hgb 6.6 L Hct 20.3 L MCV 87.5 MCH 28.4 MCHC 32.5 RDW 19.7 H Plt Count 182 MPV 10.0 Immature Gran % 2.9 Seg Neutrophils % 63.4 Lymphocytes % 20.6 Monocytes % 9.7 Eosinophils % 2.9 Basophils % 0.5 Neutrophils # 3.7 Lymphocytes # 1.2 Monocytes # 0.6 Eosinophils # 0.2 Basophils # 0.0 Nucleated RBCs/100 WBC 1.0 H PT INR Sodium Potassium Chloride Carbon Dioxide BUN Creatinine Est GFR ( Amer) Est GFR (Non-Af Amer) BUN/Creatinine Ratio Glucose POC Glucose 98 Calculated Osmolality Calcium Total Bilirubin AST ALT Alkaline Phosphatase Serum Total Protein Albumin Globulin Albumin/Globulin Ratio Carcinoembryonic Ag Hepatitis A IgM Ab Nonreactive Hep B Core IgM Ab Nonreactive Hepatitis C Ab Screen Nonreactive 12/08/17 12/08/17 12/08/17 04:09 05:35 07:18 WBC RBC Hgb Hct MCV MCH MCHC RDW Plt Count MPV Immature Gran % Seg Neutrophils % Lymphocytes % Monocytes % Eosinophils % Basophils % Neutrophils # Lymphocytes # Monocytes # Eosinophils # Basophils # Nucleated RBCs/100 WBC PT 11.4 INR 1.1 Sodium 139 Potassium 3.7 Chloride 107 Carbon Dioxide 26 BUN 18 Creatinine 0.94 Est GFR ( Amer) > 60 Est GFR (Non-Af Amer) > 60 BUN/Creatinine Ratio 19 Glucose 94 POC Glucose 100 H Calculated Osmolality 290 Calcium 8.6 Total Bilirubin 9.1 H AST 63 H ALT 84 H Alkaline Phosphatase 316 H Serum Total Protein 5.0 L Albumin 3.0 L Globulin 2.0 L Albumin/Globulin Ratio 1.5 Carcinoembryonic Ag 1.9 Hepatitis A IgM Ab Hep B Core IgM Ab Hepatitis C Ab Screen 12/08/17 12:36 WBC RBC Hgb Hct MCV MCH MCHC RDW Plt Count MPV Immature Gran % Seg Neutrophils % Lymphocytes % Monocytes % Eosinophils % Basophils % Neutrophils # Lymphocytes # Monocytes # Eosinophils # Basophils # Nucleated RBCs/100 WBC PT INR Sodium Potassium Chloride Carbon Dioxide BUN Creatinine Est GFR ( Amer) Est GFR (Non-Af Amer) BUN/Creatinine Ratio Glucose POC Glucose 100 H Calculated Osmolality Calcium Total Bilirubin AST ALT Alkaline Phosphatase Serum Total Protein Albumin Globulin Albumin/Globulin Ratio Carcinoembryonic Ag Hepatitis A IgM Ab Hep B Core IgM Ab Hepatitis C Ab Screen - Impressions Impressions Abdomen CT 12/08/17 00:00
[2017-12-08] MEDS: Ondansetron 4 MG/2 ML VIAL IVP PRN (14:43)
[2017-12-08] MEDS ORDERED: *HR* Metoprolol 5 MG/5 ML VIAL IVP PRN (20:38)
[2017-12-09] MEDS: OXYCODONE Oral CONC 10 MG/0.5 ML ORAL.SYG SL SCH ×6 (01:27→21:25)
[2017-12-09] MEDS: Pantoprazole 40 MG in 0.9 % Sodium Chloride Mini Bag 100 ML IVC SCH ×2 (01:27→06:06)
[2017-12-09 06:22] LABS: Basophils % 0.4 %; Eosinophils # 0.3 K/mcL (0.0-0.6); Eosinophils % 3.5 %; Hematocrit 28.5 % (37.5-50.1); Immature Granulocytes % 1.2 % (0-4); Lymphocytes # 1.2 K/mcL (0.6-4.6); Lymphocytes % 16.1 %; Mean Corpuscular HGB Conc 34.7 g/dL (31.6-35.5); Mean Corpuscular Hemoglobin 30.3 pg (28.0-33.3); Mean Corpuscular Volume 87.2 fL (83.0-100.0); Mean Platelet Volume 9.5 fL (9.4-12.4); Monocytes # 0.9 K/mcL (0.0-1.3); Monocytes % 11.9 %; Neutrophils # 5.1 K/mcL (1.6-8.9); Nucleated Red Blood Cells 0.5 /100 WBC (0); Platelet Count 186 K/mcL (140-400); Red Blood Count 3.27 M/mcL (4.19-5.50); Red Cell Distribution Width 18.2 % (11.5-14.5); Segmented Neutrophils % 66.9 %
[2017-12-09 06:26] LABS: Hemoglobin 9.9 g/dL (12.9-16.9)
[2017-12-09 06:26] LABS: VBG Ionized Calcium 1.12 mmol/L (1.15-1.35)
[2017-12-09 06:46] LABS: Alanine Aminotransferase 133 Units/L (7-52); Albumin/Globulin Ratio 1.3 (1.1-2.2); Alkaline Phosphatase 327 Units/L (34-104); Aspartate Amino Transferase 108 Units/L (13-39); BUN/Creatinine Ratio 17 (6-26); Bilirubin,Direct 6.3 mg/dL (0.0-0.2); Bilirubin,Indirect 2.9 mg/dL (0.0-1.2); Bilirubin,Total 9.2 mg/dL (0.3-1.0); Blood Urea Nitrogen 15 mg/dL (8-23); Calcium 8.5 mg/dL (8.6-10.3); Carbon Dioxide 26 mEq/L (23-29); Chloride 104 mEq/L (98-107); Globulin 2.4 g/dL (2.4-3.5); Glucose 108 mg/dL (70-105); Osmolality,Calculated 285 (280-300); Potassium 3.6 mEq/L (3.5-5.1); Sodium 137 mEq/L (136-145); Total Protein 5.4 g/dL (6.4-8.9); eGFR For African Americans > 60 (> 60); eGFR For Non-African Americans > 60 (> 60)
[2017-12-09] MEDS: 0.9 % Sodium Chloride 1,000 ML IVC SCH ×2 (08:24→12:37)
--- NOTE | 2017-12-09 09:39 | Internal Med Progress Note ---
Date of Encounter: 12/09/17 Time of Encounter: 09:36 - Assessment and plan (1) Anemia Current Visit: Yes Status: Acute Assessment and plan: Acute blood loss, likely GI bleed Precipitated by elevated INR, lab on admission reads INR >29 - Likely liver and coumadin related - INR corrected wth FFP, vitamin K, 2 units PRBC - currently INR wnl Surgery consulted, recommendations appreciated, Continue to monitor H&H Q8H Transused 6 units PRBC and 4 FFP since admission. Qualifiers: Anemia type: unspecified type Qualified Code(s): D64.9 - Anemia, unspecified (2) Hypertension Current Visit: Yes Status: Acute Assessment and plan: At home patient takes lisinopril and norvasc Patient is NPO and was hypertensive and tachycardic He will need IV medication until can do NPO medications. On prn IV lopressor q6h Pain under more control, helping BP Qualifiers: Hypertension type: essential hypertension Qualified Code(s): I10 - Essential (primary) hypertension (3) Hyperbilirubinemia Current Visit: Yes Status: Acute (4) GI bleed Current Visit: Yes Status: Acute Assessment and plan: Plan as above. Qualifiers: GI bleed type/associated pathology: unspecified gastrointestinal hemorrhage type Qualified Code(s): K92.2 - Gastrointestinal hemorrhage, unspecified (5) Jaundice Current Visit: Yes Status: Acute (6) Supratherapeutic INR Current Visit: Yes Status: Acute (7) Transaminitis Current Visit: Yes Status: Acute (8) History of DVT (deep vein thrombosis) Current Visit: Yes Status: Acute Assessment and plan: SCDs on patient Because of severe bleed, patient is poor anticoagulation candidate and was stopped on coumadin and INR was reversed. 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 - Time Spent With Patient Total time spent is greater than 50% in coordination of care (as documented) at patient's floor/unit and/or counseling patient: - Subjective Interval history: No recent BRBPR per patient. Pain improved to 4/10 at drain site. Denies fevers/chills, n/v, epigastric pain - Constitutional Vitals: Temp Pulse Resp BP Pulse Ox 98.4 F 88 18 150/83 96 12/09/17 06:57 12/09/17 06:57 12/09/17 06:57 12/09/17 06:57 12/09/17 06:57 General appearance: Present: cooperative, A&O X 3, answers questions appropriately - Head Head exam: Present: atraumatic, normocephalic - Eye Eye exam: Present: PERRL, scleral icterus, conjuntiva pink Pupils: Present: PERRL - Neck Neck exam general surgery: Present: supple, trachea midline. Absent: lymphadenopathy - Respiratory Respiratory exam: Present: CTAB. Absent: accessory muscle use, rales, rhonchi, wheezes - Cardiovascular Cardiovascular exam: Present: RRR, +S1, +S2. Absent: diastolic murmur, gallop, rubs, systolic murmur - GI/Abdominal GI/Abdominal exam: Present: normal bowel sounds, soft, no peritoneal signs. Absent: distended, tenderness - Extremities Exam Extremities exam: Present: warm, radial pulses palpable and symmetrical. Absent : calf tenderness, cyanotic, pedal edema - Neurological Exam Neurological exam: Present: CN II-XII intact, oriented X3, no focal deficits. Absent: pronater drift, facial droop, speech deficit - Skin Skin exam: Present: dry, intact Additional comments: Jaundice and pallor - improved from yesterday - Other Additional findings: Biliary drain intact draining black liquid material Internal Medicine: Result - Labs CBC & Chem 7: 12/09/17 06:04 12/09/17 06:04 Labs: Short CBC 12/09/17 Range/Units 06:04 WBC 7.7 (4.3-11.1) K/mcL Hgb 9.9 L D (12.9-16.9) g/dL Hct 28.5 L (37.5-50.1) % Plt Count 186 (140-400) K/mcL Neutrophils # 5.1 (1.6-8.9) K/mcL BMP 12/09/17 06:04 Sodium 137 Potassium 3.6 Chloride 104 Carbon Dioxide 26 BUN 15 Creatinine 0.86 Glucose 108 H Calcium 8.5 L Liver Function 12/09/17 Range/Units 06:04 Total Bilirubin 9.2 H (0.3-1.0) mg/dL Direct Bilirubin 6.3 H (0.0-0.2) mg/dL AST 108 H (13-39) Units/L ALT 133 H (7-52) Units/L Alkaline Phosphatase 327 H (34-104) Units/L Albumin 3.0 L (3.5-5.7) g/dL - ABG Interpretation ABG results: PT/INR, D-dimer PT 11.4 Seconds (9.4-12.1) 12/08/17 07:18 - Impressions Impressions Abdomen CT 12/08/17 00:00 IMPRESSION: Patient is status post percutaneous biliary drainage tube catheter placement without adverse abnormality noted. There does appear to be some improvement to the previously noted intra and extrahepatic biliary ductal dilatation from recent exams. There is stable dilatation of the pancreatic duct. D/ / 12/08/2017 10:19:59 Aman Lindo MD / malachi Interpreting Provider: Aman Lindo MD Percutaneous Drainage 12/08/17 00:00 IMPRESSION: 1. Complete obstruction of the common bile duct with marked intrahepatic and extrahepatic biliary ductal dilatation. 2. Aborted procedure at traversing the common bile duct obstruction given his change in mental status and severe abdominal pain. 3. Right external biliary drainage catheter placement as discussed above. He was taken for immediate CT scan following the procedure which demonstrated no complications from the biliary drainage. He also returned to baseline following the CT scan. Plan: Continue external drainage for a few days and then re- attempt at traversing the common bile duct obstruction. D/ / James Valles MD / James Valles MD Interpreting Provider: James Valles MD - VTE Documentation of Mechanical Device: Intermittent pneumatic compression device Consult Discharge Plan - Plan Referrals: Shawn Vazquez Jr, MD [Primary Care Provider] - 12/14/17 10:00 am
[2017-12-09 14:01] LABS: Hematocrit 31.3 % (37.5-50.1); Hemoglobin 10.9 g/dL (12.9-16.9)
[2017-12-09] MEDS: Pantoprazole 40 MG VIAL IVP SCH (17:05)
--- NOTE | 2017-12-09 18:18 | General Surgery Progress Note ---
Date of Encounter: 12/09/17 Time of Encounter: 18:16 - Assessment and Plan (1) 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 67M with obstructive jaundice with periampullary mass s/p decompression with IR ; still elevated T. bili; will plan for operative intervention per Dr. Russell when T bili decreases to less than 4; Subjective Patient reports: no new complaints, other (patient feeling hungry) Objective Vital Signs - Last 8 Hours Temp Pulse Resp BP Pulse Ox 12/09/17 16:20 97.5 F L 70 16 131/76 95 12/09/17 15:18 98.1 F 76 16 153/79 98 12/09/17 13:50 162/75 12/09/17 12:45 98.5 F 94 18 167/88 12/09/17 11:53 98.1 F 88 16 168/82 95 Intake and Output 12/09/17 12/09/17 12/09/17 07:59 15:59 23:59 Intake Total 650 / 650 600 / 600 0 / 0 Output Total 450 / 450 375 / 375 Balance 200 / 200 225 / 225 0 / 0 Intake: IV Fluids 200 / 200 Protonix 40 MG In 0.9 % Sodium 200 / 200 Chloride (Mini-Bag +) 100 ML @ 20 mls/hr IVC .Q5H [facility] Rx#: [id number] Oral 100 / 100 600 / 600 0 / 0 Blood Product 350 / 350 Rbcs Leuko Poor As-3 2nd Unit 350 / 350 [id number] Output: Urine 450 / 450 375 / 375 Wound Drainage 0 / 0 Right Medial Abdomen 0 / 0 Other: Meal Lunch Percent of Meal Consumed 100% Weight 100.6 kg Blood Glucose* 160 Patient Weight 12/09/17 23:59 Weight 100.6 kg - General physical appearance no distress - Respiratory normal expansion, normal respiratory effort - Cardiovascular Cardiovascular exam: Present: RRR - Abdomen Abdomen: Present: soft (non peritoneal) - Neurologic CN 2-12 grossly intact - Musculoskeletal normal posture - Labs 12/09/17 13:26 12/09/17 06:04 Diabetes panel 12/09/17 Range/Units 06:04 Sodium 137 (136-145) mEq/L Potassium 3.6 (3.5-5.1) mEq/L Chloride 104 (98-107) mEq/L Carbon Dioxide 26 (23-29) mEq/L BUN 15 (8-23) mg/dL Creatinine 0.86 (0.70-1.30) mg/dL Glucose 108 H (70-105) mg/dL Calcium 8.5 L (8.6-10.3) mg/dL AST 108 H (13-39) Units/L ALT 133 H (7-52) Units/L Alkaline Phosphatase 327 H (34-104) Units/L Albumin 3.0 L (3.5-5.7) g/dL Calcium panel 12/09/17 Range/Units 06:04 Calcium 8.5 L (8.6-10.3) mg/dL Albumin 3.0 L (3.5-5.7) g/dL Pituitary panel 12/09/17 Range/Units 06:04 Sodium 137 (136-145) mEq/L Potassium 3.6 (3.5-5.1) mEq/L Chloride 104 (98-107) mEq/L Carbon Dioxide 26 (23-29) mEq/L BUN 15 (8-23) mg/dL Creatinine 0.86 (0.70-1.30) mg/dL Glucose 108 H (70-105) mg/dL Calcium 8.5 L (8.6-10.3) mg/dL Adrenal panel 12/09/17 Range/Units 06:04 Sodium 137 (136-145) mEq/L Potassium 3.6 (3.5-5.1) mEq/L Chloride 104 (98-107) mEq/L Carbon Dioxide 26 (23-29) mEq/L BUN 15 (8-23) mg/dL Creatinine 0.86 (0.70-1.30) mg/dL Glucose 108 H (70-105) mg/dL Calcium 8.5 L (8.6-10.3) mg/dL Total Bilirubin 9.2 H (0.3-1.0) mg/dL AST 108 H (13-39) Units/L ALT 133 H (7-52) Units/L Alkaline Phosphatase 327 H (34-104) Units/L Albumin 3.0 L (3.5-5.7) g/dL - VTE Documentation of Mechanical Device: Intermittent pneumatic compression device Consult Discharge Plan - Plan Referrals: Shawn Vazquez Jr, MD [Primary Care Provider] - 12/14/17 10:00 am
[2017-12-09] MEDS ORDERED: ALPRAZolam 0.25 MG TABLET PO PRN (20:02)
[2017-12-09] MEDS: Mirtazapine 15 MG TABLET PO SCH (21:24)
[2017-12-10] MEDS: OXYCODONE Oral CONC 10 MG/0.5 ML ORAL.SYG SL SCH ×6 (01:17→20:51)
[2017-12-10] MEDS: 0.9 % Sodium Chloride 1,000 ML IVC SCH ×3 (02:14→15:56)
[2017-12-10 05:21] LABS: Basophils % 0.6 %; Eosinophils # 0.4 K/mcL (0.0-0.6); Eosinophils % 5.4 %; Hemoglobin 10.6 g/dL (12.9-16.9); Immature Granulocytes % 0.7 % (0-4); Lymphocytes # 1.3 K/mcL (0.6-4.6); Lymphocytes % 18.2 %; Mean Corpuscular HGB Conc 33.1 g/dL (31.6-35.5); Mean Corpuscular Hemoglobin 29.3 pg (28.0-33.3); Mean Corpuscular Volume 88.4 fL (83.0-100.0); Mean Platelet Volume 9.9 fL (9.4-12.4); Monocytes # 0.9 K/mcL (0.0-1.3); Monocytes % 12.1 %; Neutrophils # 4.5 K/mcL (1.6-8.9); Platelet Count 221 K/mcL (140-400); Red Blood Count 3.62 M/mcL (4.19-5.50); Red Cell Distribution Width 18.5 % (11.5-14.5)
[2017-12-10] MEDS: Pantoprazole 40 MG VIAL IVP SCH ×2 (05:39→17:40)
[2017-12-10 05:41] LABS: Alanine Aminotransferase 125 Units/L (7-52); Albumin 3.2 g/dL (3.5-5.7); Albumin/Globulin Ratio 1.3 (1.1-2.2); Alkaline Phosphatase 324 Units/L (34-104); Aspartate Amino Transferase 84 Units/L (13-39); BUN/Creatinine Ratio 15 (6-26); Bilirubin,Direct 6.5 mg/dL (0.0-0.2); Bilirubin,Indirect 3.4 mg/dL (0.0-1.2); Bilirubin,Total 9.9 mg/dL (0.3-1.0); Blood Urea Nitrogen 14 mg/dL (8-23); Calcium 8.7 mg/dL (8.6-10.3); Carbon Dioxide 25 mEq/L (23-29); Chloride 106 mEq/L (98-107); Globulin 2.4 g/dL (2.4-3.5); Glucose 103 mg/dL (70-105); Osmolality,Calculated 287 (280-300); Potassium 3.6 mEq/L (3.5-5.1); Sodium 138 mEq/L (136-145); Total Protein 5.6 g/dL (6.4-8.9); eGFR For African Americans > 60 (> 60); eGFR For Non-African Americans > 60 (> 60)
--- NOTE | 2017-12-10 09:11 | Oncology Inp Progress Note ---
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 Bilirubin not trending down, possible ERCP stent placement next week. Possible Whipple's definite a procedure if there is no evidence of metastatic disease. PAtient was consulted by Dr Russell. Obtain CT abd with IV contrast next wk Hemoglobin is trending up, kidney function normal. We will add ferritin to labs. Plan d/w patient. Oncology: Subj Interval history: He is having some abdominal discomfort at the drainage tube site. - Constitutional Vitals: Vital Signs Temp Pulse Resp BP Pulse Ox 12/10/17 08:11 98.7 F 83 16 165/95 96 12/10/17 03:38 98.5 F 88 16 159/90 96 12/10/17 01:49 98.2 F 107 16 179/104 96 12/09/17 19:27 98.7 F 101 16 157/91 95 12/09/17 16:20 97.5 F L 70 16 131/76 95 12/09/17 15:18 98.1 F 76 16 153/79 98 12/09/17 13:50 162/75 12/09/17 12:45 98.5 F 94 18 167/88 12/09/17 11:53 98.1 F 88 16 168/82 95 Intake and Output 12/09/17 12/10/17 12/10/17 23:59 07:59 15:59 Intake Total 480 / 480 1000 / 1000 0 / 0 Output Total 550 / 550 725 / 725 0 / 0 Balance -70 / -70 275 / 275 0 / 0 Intake: IV Fluids 1000 / 1000 0.9 % Sodium Chloride 1,000 ML 1000 / 1000 @ 75 mls/hr IVC .[id number] [facility] Rx #:[id number] Oral 480 / 480 0 / 0 0 / 0 Output: Urine 300 / 300 375 / 375 0 / 0 Catheter 350 / 350 Wound Drainage 250 / 250 0 / 0 Right Medial Abdomen 250 / 250 0 / 0 Other: Meal Nourishment/Supplement Percent of Meal Consumed 100% Weight 100.9 kg Blood Glucose* 160 Patient Weight 12/10/17 23:59 Weight 100.9 kg General appearance: no acute distress - Head Head exam: Present: atraumatic, normal inspection - ENT ENT exam: Present: mucous membranes dry - Respiratory Respiratory exam: Present: CTAB - Cardiovascular Cardiovascular exam: Present: +S1, +S2 - GI/Abdominal GI/Abdominal exam: Present: soft Additional comments: non tender - Extremities Exam Extremities exam: Present: normal inspection - Neurological Exam Neurological exam: Present: alert, CN II-XII intact, oriented X3, no focal deficits Oncology: Obj Data - Labs CBC & Chem 7: 12/10/17 04:06 12/10/17 04:06 Labs: Laboratory Results - last 24 hr 12/09/17 12/09/17 12/10/17 12:57 13:26 04:06 WBC RBC Hgb 10.9 L Hct 31.3 L MCV MCH MCHC RDW Plt Count MPV Immature Gran % Seg Neutrophils % Lymphocytes % Monocytes % Eosinophils % Basophils % Neutrophils # Lymphocytes # Monocytes # Eosinophils # Basophils # Sodium 138 Potassium 3.6 Chloride 106 Carbon Dioxide 25 BUN 14 Creatinine 0.94 Est GFR ( Amer) > 60 Est GFR (Non-Af Amer) > 60 BUN/Creatinine Ratio 15 Glucose 103 POC Glucose 126 H Calculated Osmolality 287 Calcium 8.7 Total Bilirubin 9.9 H Direct Bilirubin 6.5 H Indirect Bilirubin 3.4 H AST 84 H ALT 125 H Alkaline Phosphatase 324 H Serum Total Protein 5.6 L Albumin 3.2 L Globulin 2.4 Albumin/Globulin Ratio 1.3 12/10/17 04:06 WBC 7.1 RBC 3.62 L Hgb 10.6 L Hct 32.0 L MCV 88.4 MCH 29.3 MCHC 33.1 RDW 18.5 H Plt Count 221 MPV 9.9 Immature Gran % 0.7 Seg Neutrophils % 63.0 Lymphocytes % 18.2 Monocytes % 12.1 Eosinophils % 5.4 Basophils % 0.6 Neutrophils # 4.5 Lymphocytes # 1.3 Monocytes # 0.9 Eosinophils # 0.4 Basophils # 0.0 Sodium Potassium Chloride Carbon Dioxide BUN Creatinine Est GFR ( Amer) Est GFR (Non-Af Amer) BUN/Creatinine Ratio Glucose POC Glucose Calculated Osmolality Calcium Total Bilirubin Direct Bilirubin Indirect Bilirubin AST ALT Alkaline Phosphatase Serum Total Protein Albumin Globulin Albumin/Globulin Ratio - ABG Interpretation ABG results: PT/INR, D-dimer PT 11.4 Seconds (9.4-12.1) 12/08/17 07:18 Consult Discharge Plan - Plan Referrals: Shawn Vazquez Jr, MD [Primary Care Provider] - 12/14/17 10:00 am
[2017-12-10 09:30] LABS: Ferritin 126 ng/ml (20-250)
--- NOTE | 2017-12-10 11:32 | General Surgery Progress Note ---
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 service on upper endoscopy. Current bilirubin 9.9, up from 9.2 yesterday. Plan: - Cont monitoring bilirubin and LFTs - Plan for Whipple resection once liver function has improved; goal of <4 total bilirubin. - Encouraged adequate hydration in the meantime. - monitoring PRANEETH output volume and quality (2) GI bleed Current Visit: Yes Status: Acute being evaluated by GI team. Qualifiers: GI bleed type/associated pathology: unspecified gastrointestinal hemorrhage type Qualified Code(s): K92.2 - Gastrointestinal hemorrhage, unspecified Subjective Narrative: No new complaints. Abdominal pain. Does have mild pain and his right upper quadrant drain insertion site that is improved over yesterday. Has had 250 mLs out of the straight over the last 24 hours. No overnight fevers. Tolerating diet without any difficulty. Objective Vital Signs - Last 8 Hours Temp Pulse Resp BP Pulse Ox 12/10/17 08:11 98.7 F 83 16 165/95 96 12/10/17 03:38 98.5 F 88 16 159/90 96 Intake and Output 12/09/17 12/10/17 12/10/17 23:59 07:59 15:59 Intake Total 480 / 480 1000 / 1000 360 / 360 Output Total 550 / 550 725 / 725 150 / 150 Balance -70 / -70 275 / 275 210 / 210 Intake: IV Fluids 1000 / 1000 0.9 % Sodium Chloride 1,000 ML 1000 / 1000 @ 75 mls/hr IVC .[id number] [facility] Rx #:[id number] Oral 480 / 480 0 / 0 360 / 360 Output: Urine 300 / 300 375 / 375 150 / 150 Catheter 350 / 350 Wound Drainage 250 / 250 0 / 0 Right Medial Abdomen 250 / 250 0 / 0 Other: Meal Nourishment/Supplement Breakfast Percent of Meal Consumed 100% 100% Weight 100.9 kg Blood Glucose* 160 Patient Weight 12/10/17 23:59 Weight 100.9 kg Stable exam from 12/09/17 VITAL SIGNS: Reviewed. GENERAL: comfortably inclined in bed, no acute distress, answers questions appropriately. RUQ drain with ~50mL dark bilious fluid; tube in place and secure. HEENT: PER (3-4mm), EOMi CV: RRR, no murmurs or gallops, no JVD RESPIRATORY: CTAB without wheezes, rales, or rhonchi ABD: grossly normal, active sounds, soft, non-tender except near drain site. No distention/guarding/rigidity. EXTREMITY: grossly normal motor function, no pedal edema, peripheral pulses 2+ b /l NEUROLOGIC EXAM: AOx3, obeys commands, no speech deficits. PSYCHIATRIC: normal mood and affect - Labs 12/10/17 04:06 12/10/17 04:06 Diabetes panel 12/10/17 Range/Units 04:06 Sodium 138 (136-145) mEq/L Potassium 3.6 (3.5-5.1) mEq/L Chloride 106 (98-107) mEq/L Carbon Dioxide 25 (23-29) mEq/L BUN 14 (8-23) mg/dL Creatinine 0.94 (0.70-1.30) mg/dL Glucose 103 (70-105) mg/dL Calcium 8.7 (8.6-10.3) mg/dL AST 84 H (13-39) Units/L ALT 125 H (7-52) Units/L Alkaline Phosphatase 324 H (34-104) Units/L Albumin 3.2 L (3.5-5.7) g/dL Calcium panel 12/10/17 Range/Units 04:06 Calcium 8.7 (8.6-10.3) mg/dL Albumin 3.2 L (3.5-5.7) g/dL Pituitary panel 12/10/17 Range/Units 04:06 Sodium 138 (136-145) mEq/L Potassium 3.6 (3.5-5.1) mEq/L Chloride 106 (98-107) mEq/L Carbon Dioxide 25 (23-29) mEq/L BUN 14 (8-23) mg/dL Creatinine 0.94 (0.70-1.30) mg/dL Glucose 103 (70-105) mg/dL Calcium 8.7 (8.6-10.3) mg/dL Adrenal panel 12/10/17 Range/Units 04:06 Sodium 138 (136-145) mEq/L Potassium 3.6 (3.5-5.1) mEq/L Chloride 106 (98-107) mEq/L Carbon Dioxide 25 (23-29) mEq/L BUN 14 (8-23) mg/dL Creatinine 0.94 (0.70-1.30) mg/dL Glucose 103 (70-105) mg/dL Calcium 8.7 (8.6-10.3) mg/dL Total Bilirubin 9.9 H (0.3-1.0) mg/dL AST 84 H (13-39) Units/L ALT 125 H (7-52) Units/L Alkaline Phosphatase 324 H (34-104) Units/L Albumin 3.2 L (3.5-5.7) g/dL - VTE Documentation of Mechanical Device: Intermittent pneumatic compression device Consult Discharge Plan - Plan Referrals: Shawn Vazquez Jr, MD [Primary Care Provider] - 12/14/17 10:00 am
--- NOTE | 2017-12-10 12:41 | Event Note ---
<Amos Maldonado - Last Filed: 12/10/17 12:39> Date of Encounter: 12/10/17 Time of Encounter: 07:45 Bilirubin up to 9.9 compared to previous 9.2 on 12/09/17 despite placement of PC drain. May need IR re-evaluation to verify drain placement to ensure adequate evacuation of obstructed biliary channel. Plan is still for Whipple once TBili <[address] Russell. Will attend to LFTs and proceed accordingly. <Luz Canales - Last Filed: 12/10/17 13:05> Date of Encounter: 12/10/17 discussed with hospitalist, patient bilirubin is not decreasing at this point, PTC drain with only 250 cc in 24 hrs, discussed that I dont think GI was able to access ampulla during scope or else they would have placed a transpapullary stent to decompress CBD, PTC is not draining a lot of bile and drainage may be inadequate, recommended they discuss with IR, patient may need another cholangiogram and possible catheter reposition or replacement of drain in better position. Dr Russell plans Whipple once bilirubin is < 4.0 will follow
--- NOTE | 2017-12-10 15:20 | Internal Med Progress Note ---
Date of Encounter: 12/10/17 Time of Encounter: 15:38 - Assessment and plan (1) Anemia Current Visit: Yes Status: Acute Assessment and plan: Acute blood loss, likely GI bleed Precipitated by elevated INR, lab on admission reads INR >29 - Likely liver and coumadin related - INR corrected wth FFP, vitamin K, 2 units PRBC - currently INR wnld, Transused 6 units PRBC and 4 FFP since admission. H&H now stable. INR reversed was 1.1 on 12/08. Recheck INR Check CBC in AM Qualifiers: Anemia type: unspecified type Qualified Code(s): D64.9 - Anemia, unspecified (2) Hypertension Current Visit: Yes Status: Acute Assessment and plan: At home patient takes lisinopril and norvasc Pain under more control, helping BP Resume home medications Qualifiers: Hypertension type: essential hypertension Qualified Code(s): I10 - Essential (primary) hypertension (3) Hyperbilirubinemia Current Visit: Yes Status: Acute Assessment and plan: Has Will need to contact IR and evaluate if drain is misplaced or came out. (4) GI bleed Current Visit: Yes Status: Acute Assessment and plan: Plan as above. Qualifiers: GI bleed type/associated pathology: unspecified gastrointestinal hemorrhage type Qualified Code(s): K92.2 - Gastrointestinal hemorrhage, unspecified (5) Jaundice Current Visit: Yes Status: Acute (6) Supratherapeutic INR Current Visit: Yes Status: Acute (7) Transaminitis Current Visit: Yes Status: Acute Assessment and plan: GI consulted recommendations appreciated. Patient does take chronic pain medications at home including percocet per patient. CT scan: There was moderate intra and extrahepatic biliary ductal dilation without stone that was seen on CT scan. Gall bladder ultrasound: GBW thickened with bile sludge. common bile duct was 8.1 mm. Viral hepatitis panel negative (8) History of DVT (deep vein thrombosis) Current Visit: Yes Status: Acute Assessment and plan: SCDs on patient Because of severe bleed, patient is poor anticoagulation candidate and was stopped on coumadin and INR was reversed. 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 - Time Spent With Patient Total time spent is greater than 50% in coordination of care (as documented) at patient's floor/unit and/or counseling patient: - Subjective Interval history: No recent BRBPR per patient. Pain continues to improve at drain site, now 1/10 with pain medication Denies fevers/chills, n/v, epigastric pain Total bilirubin in past 2-3 days and patient does not that maybe he felt drain slip out. - Constitutional Vitals: Temp Pulse Resp BP Pulse Ox 98.7 F 83 16 165/95 96 12/10/17 08:11 12/10/17 08:11 12/10/17 08:11 12/10/17 08:11 12/10/17 08:11 General appearance: Present: cooperative, A&O X 3, answers questions appropriately Exam: - Head Head exam: Present: atraumatic, normocephalic - Eye Eye exam: Present: PERRL, scleral icterus, conjuntiva pink Pupils: Present: PERRL - Neck Neck exam general surgery: Present: supple, trachea midline. Absent: lymphadenopathy - Respiratory Respiratory exam: Present: CTAB. Absent: accessory muscle use, rales, rhonchi, wheezes - Cardiovascular Cardiovascular exam: Present: RRR, +S1, +S2. Absent: diastolic murmur, gallop, rubs, systolic murmur - GI/Abdominal GI/Abdominal exam: Present: normal bowel sounds, soft, no peritoneal signs. Absent: distended, tenderness - Extremities Exam Extremities exam: Present: warm, radial pulses palpable and symmetrical. Absent : calf tenderness, cyanotic, pedal edema - Neurological Exam Neurological exam: Present: CN II-XII intact, oriented X3, no focal deficits. Absent: pronater drift, facial droop, speech deficit - Skin Skin exam: Present: dry, intact Additional comments: Shows Jaundice and pallor - Other Additional findings: Biliary drain intact draining black liquid material Internal Medicine: Result - Labs CBC & Chem 7: 12/10/17 04:06 12/10/17 04:06 Labs: Short CBC 12/10/17 Range/Units 04:06 WBC 7.1 (4.3-11.1) K/mcL Hgb 10.6 L (12.9-16.9) g/dL Hct 32.0 L (37.5-50.1) % Plt Count 221 (140-400) K/mcL Neutrophils # 4.5 (1.6-8.9) K/mcL BMP 12/10/17 04:06 Sodium 138 Potassium 3.6 Chloride 106 Carbon Dioxide 25 BUN 14 Creatinine 0.94 Glucose 103 Calcium 8.7 Liver Function 12/10/17 Range/Units 04:06 Total Bilirubin 9.9 H (0.3-1.0) mg/dL Direct Bilirubin 6.5 H (0.0-0.2) mg/dL AST 84 H (13-39) Units/L ALT 125 H (7-52) Units/L Alkaline Phosphatase 324 H (34-104) Units/L Albumin 3.2 L (3.5-5.7) g/dL - ABG Interpretation ABG results: PT/INR, D-dimer PT 11.4 Seconds (9.4-12.1) 12/08/17 07:18 - VTE Documentation of Mechanical Device: Intermittent pneumatic compression device Consult Discharge Plan - Plan Referrals: Shawn Vazquez Jr, MD [Primary Care Provider] - 12/14/17 10:00 am
[2017-12-10] MEDS: *HR* Metoprolol 5 MG/5 ML VIAL IVP SCH (17:40)
[2017-12-10] MEDS: Mirtazapine 15 MG TABLET PO SCH (20:51)
[2017-12-11] MEDS: *HR* Metoprolol 5 MG/5 ML VIAL IVP SCH ×4 (01:12→17:30)
[2017-12-11] MEDS: OXYCODONE Oral CONC 10 MG/0.5 ML ORAL.SYG SL SCH ×6 (01:12→21:08)
[2017-12-11] MEDS: 0.9 % Sodium Chloride 1,000 ML IVC SCH ×2 (05:37→20:02)
[2017-12-11] MEDS: Pantoprazole 40 MG VIAL IVP SCH ×2 (05:38→17:30)
[2017-12-11 06:58] LABS: Basophils # 0.1 K/mcL (0.0-0.2); Basophils % 0.8 %; Eosinophils # 0.4 K/mcL (0.0-0.6); Eosinophils % 7.3 %; Hematocrit 33.4 % (37.5-50.1); Immature Granulocytes % 1.5 % (0-4); Lymphocytes % 17.4 %; Mean Corpuscular HGB Conc 32.9 g/dL (31.6-35.5); Mean Corpuscular Hemoglobin 29.7 pg (28.0-33.3); Mean Corpuscular Volume 90.3 fL (83.0-100.0); Mean Platelet Volume 9.7 fL (9.4-12.4); Monocytes # 0.7 K/mcL (0.0-1.3); Monocytes % 12.4 %; Neutrophils # 3.6 K/mcL (1.6-8.9); Platelet Count 233 K/mcL (140-400); Red Cell Distribution Width 17.6 % (11.5-14.5); Segmented Neutrophils % 60.6 %
[2017-12-11 07:23] LABS: Alanine Aminotransferase 110 Units/L (7-52); Albumin 3.2 g/dL (3.5-5.7); Albumin/Globulin Ratio 1.2 (1.1-2.2); Alkaline Phosphatase 315 Units/L (34-104); Aspartate Amino Transferase 66 Units/L (13-39); BUN/Creatinine Ratio 14 (6-26); Bilirubin,Direct 7.2 mg/dL (0.0-0.2); Bilirubin,Indirect 3.6 mg/dL (0.0-1.2); Bilirubin,Total 10.8 mg/dL (0.3-1.0); Blood Urea Nitrogen 14 mg/dL (8-23); Calcium 9.1 mg/dL (8.6-10.3); Carbon Dioxide 25 mEq/L (23-29); Chloride 105 mEq/L (98-107); Globulin 2.7 g/dL (2.4-3.5); Glucose 93 mg/dL (70-105); Osmolality,Calculated 284 (280-300); Sodium 137 mEq/L (136-145); Total Protein 5.9 g/dL (6.4-8.9); eGFR For African Americans > 60 (> 60); eGFR For Non-African Americans > 60 (> 60)
--- NOTE | 2017-12-11 07:43 | General Surgery Progress Note ---
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 Inadequate amount of bile drainage. Bilirubin continues to be elevated from 9.9 yesterday to 10.8 today. D. Bili elevated at 7.2. Dr. Russell plans for whipple once bilirubin is < 4.0. - Recommend another cholangiogram and possible catheter reposition or replacement of drain for better position. Subjective Narrative: Patient denies any abdominal pain, however he does admit to some discomfort from the drain placement. He denies any nausea or vomiting. Denies any fever or chill. Denies any chest pain or SOB. Denies any BM, but admits to passing gas. Objective VITAL SIGNS: Reviewed. See [facility] GENERAL: no apparent distress. HEENT: [Normocephalic, PER, EOMI, oropharynx pink/moist, no JVD noted.] CV: b/l rad pulses 2+, RRR, no murmurs or gallops, no JVD RESPIRATORY: CTAB without wheezes, rales, or rhonchi ABD: soft, non-tender, no rebound/guarding/rigidity, no peritoneal signs DRAINS: PRANEETH site without signs of infection; bulb contains brown bile fluid. EXTREMITY: grossly normal motor function, no pedal edema, peripheral pulses 2+ b /l NEUROLOGIC EXAM: AOx3, obeys commands, no speech deficits. PSYCHIATRIC: normal mood and affect SKIN: no gross lesions, rashes, or skin changes Vital Signs - Last 8 Hours Temp Pulse Resp BP Pulse Ox 12/11/17 07:20 98.5 F 79 16 183/88 96 12/11/17 04:15 180/86 12/11/17 03:53 98.0 F 59 17 212/118 98 12/11/17 00:58 98.4 F 89 17 217/116 100 Intake and Output 12/10/17 12/10/17 12/11/17 15:59 23:59 07:59 Intake Total 1830 / 1830 440 / 440 1240 / 1240 Output Total 525 / 525 560 / 560 1525 / 1525 Balance 1305 / 1305 -120 / -120 -285 / -285 Intake: IV Fluids 1000 / 1000 1000 / 1000 0.9 % Sodium Chloride 1,000 ML 1000 / 1000 1000 / 1000 @ 75 mls/hr IVC .[id number] [facility] Rx #:[id number] Oral 830 / 830 440 / 440 240 / 240 Output: Urine 525 / 525 400 / 400 1475 / 1475 Wound Drainage 160 / 160 50 / 50 Right Medial Abdomen 160 / 160 50 / 50 Other: Meal Lunch Dinner Percent of Meal Consumed 100% 100% Weight 102.9 kg Patient Weight 12/11/17 23:59 Weight 102.9 kg - Labs 12/11/17 06:33 12/11/17 06:33 Diabetes panel 12/10/17 12/11/17 Range/Units 04:06 06:33 Sodium 138 137 (136-145) mEq/L Potassium 3.6 (3.5-5.1) mEq/L Chloride 106 105 (98-107) mEq/L Carbon Dioxide 25 25 (23-29) mEq/L BUN 14 14 (8-23) mg/dL Creatinine 0.94 0.98 (0.70-1.30) mg/dL Glucose 103 93 (70-105) mg/dL Calcium 8.7 9.1 (8.6-10.3) mg/dL AST 84 H 66 H (13-39) Units/L ALT 125 H 110 H (7-52) Units/L Alkaline Phosphatase 324 H 315 H (34-104) Units/L Albumin 3.2 L 3.2 L (3.5-5.7) g/dL Calcium panel 12/10/17 12/11/17 Range/Units 04:06 06:33 Calcium 8.7 9.1 (8.6-10.3) mg/dL Albumin 3.2 L 3.2 L (3.5-5.7) g/dL Pituitary panel 12/10/17 12/11/17 Range/Units 04:06 06:33 Sodium 138 137 (136-145) mEq/L Potassium 3.6 (3.5-5.1) mEq/L Chloride 106 105 (98-107) mEq/L Carbon Dioxide 25 25 (23-29) mEq/L BUN 14 14 (8-23) mg/dL Creatinine 0.94 0.98 (0.70-1.30) mg/dL Glucose 103 93 (70-105) mg/dL Calcium 8.7 9.1 (8.6-10.3) mg/dL Adrenal panel 12/10/17 12/11/17 Range/Units 04:06 06:33 Sodium 138 137 (136-145) mEq/L Potassium 3.6 (3.5-5.1) mEq/L Chloride 106 105 (98-107) mEq/L Carbon Dioxide 25 25 (23-29) mEq/L BUN 14 14 (8-23) mg/dL Creatinine 0.94 0.98 (0.70-1.30) mg/dL Glucose 103 93 (70-105) mg/dL Calcium 8.7 9.1 (8.6-10.3) mg/dL Total Bilirubin 9.9 H 10.8 H (0.3-1.0) mg/dL AST 84 H 66 H (13-39) Units/L ALT 125 H 110 H (7-52) Units/L Alkaline Phosphatase 324 H 315 H (34-104) Units/L Albumin 3.2 L 3.2 L (3.5-5.7) g/dL - VTE Documentation of Mechanical Device: Intermittent pneumatic compression device Consult Discharge Plan - Plan Referrals: Shawn Vazquez Jr, MD [Primary Care Provider] - 12/14/17 10:00 am <Luz Canales - Last Filed: 12/11/17 14:04> Date of Encounter: 12/11/17 - Assessment and Plan (1) Jaundice Current Visit: Yes Status: Acute (2) 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 discussed with hospitalist yesterday that patient needs evaluated by IR for PTC drain is not draining much and his Tbili keeps increasing, likely needs tube repositioned or replaced, discussed with patient and he states that he had a lot of pain with the first procedure and requests sedation for better pain control if anything further needs done Subjective Patient reports: tolerating a regular diet, afebrile Narrative: no complaints of itching tolerating diet patient does complain that when his ptc drain was placed it was very painful and asks if anything needs done again if he can be give some sedation for the procedure Objective Vital Signs - Last 8 Hours Temp Pulse Resp BP Pulse Ox 12/11/17 11:46 98.9 F 66 16 186/88 96 12/11/17 07:20 98.5 F 79 16 183/88 96 Intake and Output 12/10/17 12/11/17 12/11/17 23:59 07:59 15:59 Intake Total 440 / 440 1240 / 1240 240 / 240 Output Total 560 / 560 1525 / 1525 575 / 575 Balance -120 / -120 -285 / -285 -335 / -335 Intake: IV Fluids 1000 / 1000 0.9 % Sodium Chloride 1,000 ML 1000 / 1000 @ 75 mls/hr IVC .[id number] [facility] Rx #:[id number] Oral 440 / 440 240 / 240 240 / 240 Output: Urine 400 / 400 1475 / 1475 575 / 575 Wound Drainage 160 / 160 50 / 50 0 / 0 Right Medial Abdomen 160 / 160 50 / 50 0 / 0 Other: Meal Dinner Lunch Percent of Meal Consumed 100% 100% # Voids 1 Weight 102.9 kg Patient Weight 12/11/17 23:59 Weight 102.9 kg - General physical appearance well developed, well nourished, no distress, jaundice - Eyes normal ocular movement - ENT normal mucosa, normocephalic - Neck Neck exam: trachea midline - Respiratory normal expansion, normal respiratory effort - Abdomen Abdomen: Present: soft, non tender Additional Comments: PTC drain - bilious - Integumentary no growths - Neurologic CN 2-12 grossly intact - Musculoskeletal normal posture - Psychiatric oriented to time, oriented to person, oriented to place, memory intact - Labs 12/11/17 06:33 12/11/17 06:33 Short CBC 12/11/17 Range/Units 06:33 WBC 5.9 (4.3-11.1) K/mcL Hgb 11.0 L (12.9-16.9) g/dL Hct 33.4 L (37.5-50.1) % Plt Count 233 (140-400) K/mcL Neutrophils # 3.6 (1.6-8.9) K/mcL BMP 12/11/17 Range/Units 06:33 Sodium 137 (136-145) mEq/L Potassium 3.8 (3.5-5.1) mEq/L Chloride 105 (98-107) mEq/L Carbon Dioxide 25 (23-29) mEq/L BUN 14 (8-23) mg/dL Creatinine 0.98 (0.70-1.30) mg/dL Glucose 93 (70-105) mg/dL Calcium 9.1 (8.6-10.3) mg/dL Liver Function 12/11/17 Range/Units 06:33 Total Bilirubin 10.8 H (0.3-1.0) mg/dL Direct Bilirubin 7.2 H (0.0-0.2) mg/dL AST 66 H (13-39) Units/L ALT 110 H (7-52) Units/L Alkaline Phosphatase 315 H (34-104) Units/L Albumin 3.2 L (3.5-5.7) g/dL Vital Signs Temp Pulse Resp BP Pulse Ox 12/11/17 11:46 98.9 F 66 16 186/88 96 12/11/17 07:20 98.5 F 79 16 183/88 96 12/11/17 04:15 180/86 12/11/17 03:53 98.0 F 59 17 212/118 98 12/11/17 00:58 98.4 F 89 17 217/116 100 12/10/17 18:34 99.1 F 76 15 154/82 97 12/10/17 15:24 98.4 F 78 16 154/89 96 Intake and Output 12/10/17 12/11/17 12/11/17 23:59 07:59 15:59 Intake Total 440 / 440 1240 / 1240 240 / 240 Output Total 560 / 560 1525 / 1525 575 / 575 Balance -120 / -120 -285 / -285 -335 / -335 Intake: IV Fluids 1000 / 1000 0.9 % Sodium Chloride 1,000 ML 1000 / 1000 @ 75 mls/hr IVC .[id number] [facility] Rx #:[id number] Oral 440 / 440 240 / 240 240 / 240 Output: Urine 400 / 400 1475 / 1475 575 / 575 Wound Drainage 160 / 160 50 / 50 0 / 0 Right Medial Abdomen 160 / 160 50 / 50 0 / 0 Other: Meal Dinner Lunch Percent of Meal Consumed 100% 100% # Voids 1 Weight 102.9 kg Patient Weight 12/11/17 23:59 Weight 102.9 kg - Attending Attestation I examined this patient and my medical decision-making was reviewed with the Resident Physician. I agree with the documented findings, disposition and treatment plan as described except to the extent set forth below.
[2017-12-11 08:06] LABS: Potassium 3.8 mEq/L (3.5-5.1)
[2017-12-11] MEDS: amLODIPine 5 MG TABLET PO SCH (09:20)
--- NOTE | 2017-12-11 12:40 | Internal Med Progress Note ---
Date of Encounter: 12/11/17 Time of Encounter: 13:20 - Assessment and plan (1) Anemia Current Visit: Yes Status: Acute Assessment and plan: Acute blood loss, likely GI bleed Precipitated by elevated INR, lab on admission reads INR >29 - Likely liver and coumadin related - INR corrected wth FFP, vitamin K, 2 units PRBC - currently INR wnld, Transused 6 units PRBC and 4 FFP since admission. INR reversed was 1.1 on 12/08. - Will recheck H&H now stable. Qualifiers: Anemia type: unspecified type Qualified Code(s): D64.9 - Anemia, unspecified (2) Hypertension Current Visit: Yes Status: Acute Assessment and plan: At home patient takes lisinopril and norvasc Pain under more control, helping BP Continue Norvasc and lisinopril Increase Norvasc to 10 mg daily Qualifiers: Hypertension type: essential hypertension Qualified Code(s): I10 - Essential (primary) hypertension (3) Hyperbilirubinemia Current Visit: Yes Status: Acute Assessment and plan: Need IR and GI services to evaluate position of biliary drain. Services available tomorrow. (4) GI bleed Current Visit: Yes Status: Acute Assessment and plan: Plan as above. Qualifiers: GI bleed type/associated pathology: unspecified gastrointestinal hemorrhage type Qualified Code(s): K92.2 - Gastrointestinal hemorrhage, unspecified (5) Jaundice Current Visit: Yes Status: Acute (6) Supratherapeutic INR Current Visit: Yes Status: Acute (7) Transaminitis Current Visit: Yes Status: Acute Assessment and plan: GI consulted recommendations appreciated. Patient does take chronic pain medications at home including percocet per patient. CT scan: There was moderate intra and extrahepatic biliary ductal dilation without stone that was seen on CT scan. Gall bladder ultrasound: GBW thickened with bile sludge. common bile duct was 8.1 mm. Viral hepatitis panel negative (8) History of DVT (deep vein thrombosis) Current Visit: Yes Status: Acute Assessment and plan: SCDs on patient Because of severe bleed, patient is poor anticoagulation candidate and was stopped on coumadin and INR was reversed. 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 - Time Spent With Patient Total time spent is greater than 50% in coordination of care (as documented) at patient's floor/unit and/or counseling patient: - Subjective Interval history: No recent BRBPR per patient. Pain continues to improve at drain site, now / with pain medication Denies fevers/chills, n/v, epigastric pain Total bilirubin in past 2-3 days and patient does not that maybe he felt drain slip out. Complaining of constipation, suggests probably because not very active - Constitutional Vitals: Temp Pulse Resp BP Pulse Ox 98.9 F 66 16 186/88 96 12/11/17 11:46 12/11/17 11:46 12/11/17 11:46 12/11/17 11:46 12/11/17 11:46 General appearance: Present: cooperative, A&O X 3, answers questions appropriately Exam: - Head Head exam: Present: atraumatic, normocephalic - Eye Eye exam: Present: PERRL, scleral icterus, conjuntiva pink Pupils: Present: PERRL - Neck Neck exam general surgery: Present: supple, trachea midline. Absent: lymphadenopathy - Respiratory Respiratory exam: Present: CTAB. Absent: accessory muscle use, rales, rhonchi, wheezes - Cardiovascular Cardiovascular exam: Present: RRR, +S1, +S2. Absent: diastolic murmur, gallop, rubs, systolic murmur - GI/Abdominal GI/Abdominal exam: Present: normal bowel sounds, soft, no peritoneal signs. Absent: distended, tenderness - Extremities Exam Extremities exam: Present: warm, radial pulses palpable and symmetrical. Absent : calf tenderness, cyanotic, pedal edema - Neurological Exam Neurological exam: Present: CN II-XII intact, oriented X3, no focal deficits. Absent: pronater drift, facial droop, speech deficit - Skin Skin exam: Present: dry, intact Additional comments: Shows Jaundice and pallor Internal Medicine: Result - Labs CBC & Chem 7: 12/11/17 06:33 12/11/17 06:33 Labs: Short CBC 12/11/17 Range/Units 06:33 WBC 5.9 (4.3-11.1) K/mcL Hgb 11.0 L (12.9-16.9) g/dL Hct 33.4 L (37.5-50.1) % Plt Count 233 (140-400) K/mcL Neutrophils # 3.6 (1.6-8.9) K/mcL BMP 12/11/17 06:33 Sodium 137 Potassium 3.8 Chloride 105 Carbon Dioxide 25 BUN 14 Creatinine 0.98 Glucose 93 Calcium 9.1 Liver Function 12/11/17 Range/Units 06:33 Total Bilirubin 10.8 H (0.3-1.0) mg/dL Direct Bilirubin 7.2 H (0.0-0.2) mg/dL AST 66 H (13-39) Units/L ALT 110 H (7-52) Units/L Alkaline Phosphatase 315 H (34-104) Units/L Albumin 3.2 L (3.5-5.7) g/dL - ABG Interpretation ABG results: PT/INR, D-dimer PT 11.4 Seconds (9.4-12.1) 12/08/17 07:18 - VTE Documentation of Mechanical Device: Intermittent pneumatic compression device Consult Discharge Plan - Plan Referrals: Shawn Vazquez Jr, MD [Primary Care Provider] - 12/14/17 10:00 am
[2017-12-11] MEDS ORDERED: Acetaminophen 325 MG TABLET PO PRN (19:59)
[2017-12-11] MEDS: Ondansetron 4 MG/2 ML VIAL IVP PRN (19:59)
[2017-12-11] MEDS ORDERED: traMADol 50 MG TABLET PO ONE (20:20)
[2017-12-11] MEDS: Mirtazapine 15 MG TABLET PO SCH (20:25)
[2017-12-12] MEDS: *HR* Metoprolol 5 MG/5 ML VIAL IVP SCH ×2 (00:25→05:38)
[2017-12-12] MEDS: OXYCODONE Oral CONC 10 MG/0.5 ML ORAL.SYG SL SCH ×3 (00:27→08:44)
[2017-12-12] MEDS: Pantoprazole 40 MG VIAL IVP SCH (05:38)
[2017-12-12 07:12] LABS: INR 1.2; Prothrombin Time 13.4 Seconds (9.4-12.1)
[2017-12-12 07:22] LABS: Albumin 3.2 g/dL (3.5-5.7); Albumin/Globulin Ratio 1.4 (1.1-2.2); Bilirubin,Direct 7.4 mg/dL (0.0-0.2); Bilirubin,Indirect 3.8 mg/dL (0.0-1.2); Bilirubin,Total 11.2 mg/dL (0.3-1.0); Globulin 2.3 g/dL (2.4-3.5); Total Protein 5.5 g/dL (6.4-8.9)
[2017-12-12 07:47] LABS: Basophils # 0.1 K/mcL (0.0-0.2); Basophils % 0.9 %; Eosinophils # 0.3 K/mcL (0.0-0.6); Eosinophils % 6.4 %; Hematocrit 33.8 % (37.5-50.1); Hemoglobin 10.9 g/dL (12.9-16.9); Immature Granulocytes % 1.1 % (0-4); Lymphocytes # 0.9 K/mcL (0.6-4.6); Lymphocytes % 17.6 %; Mean Corpuscular HGB Conc 32.2 g/dL (31.6-35.5); Mean Corpuscular Hemoglobin 29.2 pg (28.0-33.3); Mean Corpuscular Volume 90.6 fL (83.0-100.0); Monocytes # 0.7 K/mcL (0.0-1.3); Monocytes % 12.4 %; Neutrophils # 3.3 K/mcL (1.6-8.9); Platelet Count 137 K/mcL (140-400); Red Blood Count 3.73 M/mcL (4.19-5.50); Red Cell Distribution Width 17.5 % (11.5-14.5); Segmented Neutrophils % 61.6 %
[2017-12-12] MEDS ORDERED: OXYCODONE Oral CONC 10 MG/0.5 ML ORAL.SYG SL PRN (08:05)
[2017-12-12] MEDS: amLODIPine 5 MG TABLET PO SCH (08:45)
[2017-12-12] MEDS: 0.9 % Sodium Chloride 1,000 ML IVC SCH (08:52)
[2017-12-12] MEDS ORDERED: amLODIPine 5 MG TABLET PO ONE (09:00)
--- NOTE | 2017-12-12 09:29 | Discharge Summary ---
<[email or web address] cason - Last Filed: 12/12/17 09:26> Orders not resulted at time of discharge: Pending orders 12/07/17 18:03 Surgical Pathology [PTH] Routine 12/12/17 08:04 CT head/brain wo con [CT] Routine 12/13/17 04:00 LFTs [Hepatic Panel] AM 0400 Date of Encounter: 12/12/17 Time of Encounter: 06:30 - Discharge Diagnosis (1) Linnea-ampullary neoplasm Priority: Primary Status: Acute (2) GI bleed Priority: Primary Status: Acute Qualifiers: GI bleed type/associated pathology: unspecified gastrointestinal hemorrhage type Qualified Code(s): K92.2 - Gastrointestinal hemorrhage, unspecified (3) Hyperbilirubinemia Priority: Primary Status: Acute (4) Hypertension Priority: Primary Status: Acute Qualifiers: Hypertension type: essential hypertension Qualified Code(s): I10 - Essential (primary) hypertension (5) Jaundice Priority: Primary Status: Acute (6) Transaminitis Priority: Primary Status: Acute (7) Anemia Priority: Primary Status: Acute Qualifiers: Anemia type: unspecified type Qualified Code(s): D64.9 - Anemia, unspecified General Surgery Exam VITAL SIGNS: Reviewed. See [facility] GENERAL: no apparent distress. HEENT: [Normocephalic, PER, EOMi, oropharynx pink/moist, no JVD noted.]. Scleral incterus evident. CV: b/l rad pulses 2+, RRR, no murmurs or gallops, no JVD RESPIRATORY: CTAB without wheezes, rales, or rhonchi ABD: soft, non-tender, no rebound/guarding/rigidity, no peritoneal signs. Normal bowel sounds present. DRAINS: PRANEETH site R flank without signs of infection; bulb contains brown bilious fluid. EXTREMITY: grossly normal motor function, no pedal edema, peripheral pulses 2+ b /l NEUROLOGIC EXAM: AOx3, obeys commands, no speech deficits. PSYCHIATRIC: normal mood and affect SKIN: Jaundice. Initial Vital Signs Temp Pulse Resp BP Pulse Ox 98.4 F 121 18 134/88 96 12/06/17 16:11 12/06/17 16:11 12/06/17 16:11 12/06/17 16:11 12/06/17 16:11 - Hospital Course Hospital course: Mr. 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 Patient was anemic on admission with a hemoglobin of 6.5. His coagulopathy was reversed and was subsequently transfused with 2 units of blood. Patient also displayed hyperbilirubinemia at 7.5. CT scan of the abdomen and pelvis showed moderate intra-next hepatic biliary duct dilation without a common duct calcified stone. Segment of the proximal transverse colon with moderate wall thickening and adjacent stranding and fluid focal colitis versus diverticulitis versus neoplasm. 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 Transhepatic cholangiogram showed complete obstruction of the common bile duct with marked intrahepatic and extrahepatic biliary ductal dilatation. IR was consulted and placed a right external biliary drainage catheter. Output from the catheter has been less than ideal, with an output of 175 ml yesterday and 50 ml today. Adequate output would be at least 350 ml per day. His total bilirubin level continues to be elevated at 11.2 today (yesterday at 10.8). Platelet count is dropping from 233 to 137. He has mild transaminitis. CA 19-9 level is normal. Patient will need to undergo a whipple procedure for his ampullary mass however his bilirubin levels continue to rise in setting of decreased platelet count and transaminitis , signifying liver failure. Spoke to surgeon Teagan Tirado MD at [facility] who has agreed to accept the patient for transfer for higher level of care. - Time Spent with Patient Total time spent providing and/or coordinating discharge services: Less than 30 minutes - Discharge Medications Home Medications: ALPRAZolam [Xanax 0.25 MG Tablet] 0.25 mg PO BID PRN 12/06/17 [History] Desmopressin Acetate [Ddavp] 0.1 mg PO DAILY 12/06/17 [History] Levothyroxine [Synthroid] 75 mcg PO 0630 12/06/17 [History] Lisinopril [Zestril] 10 mg PO DAILY 12/06/17 [History] Mirtazapine [Remeron] 15 mg PO HS 12/06/17 [History] OxyCODONE/APAP 10/325 [Percocet 10/325 MG] 1 tab PO QID 12/06/17 [History] Oxymorphone HCl [Oxymorphone HCl ER] 30 mg PO QID 12/06/17 [History] Risedronate Sodium [Actonel] 20 mg PO QWEEK 12/06/17 [History] Testosterone [Androderm] 1 patch TP DAILY 12/06/17 [History] Testosterone [Androgel] 1 appl TP DAILY 12/06/17 [History] Warfarin Sodium 2.5 mg PO Q48H 12/06/17 [History] Warfarin Sodium 5 mg PO Q48H 12/06/17 [History] amLODIPine [Norvasc] 5 mg PO DAILY 12/06/17 [History] Allergies/Adverse Reactions: 3 Allergy/AdvReac Type Severity Reaction Status Date / Time No Known Allergies Allergy Verified 12/06/17 18:50 Date of admission: 12/06/17 21:18 Primary care physician: Shawn Vazquez Jr, MD Consults: 12/07/17 18:35 Consult to Physician [CONS] Routine Consulting Provider: Reynold Russell Reason for Consult: Ampullary mass Time Notified: 18:36 Call Completed: Yes 12/07/17 19:52 Consult to Interventional Radiology [CONS] Routine Consulting Provider: Radiology Interventional Cols Reason for Consult: PTC obstructive jaundice Call Completed: Yes Discharging clinician: Giuseppe Stock (Attending: Dr. Russell) Anticipated date of discharge: 12/12/17 Labs on day of discharge: Labs from last 24 hours 12/12/17 12/12/17 12/12/17 06:33 06:33 06:33 WBC 5.3 RBC 3.73 L Hgb 10.9 L Hct 33.8 L MCV 90.6 MCH 29.2 MCHC 32.2 RDW 17.5 H Plt Count 137 L MPV 11.0 Immature Gran % 1.1 Seg Neutrophils % 61.6 Lymphocytes % 17.6 Monocytes % 12.4 Eosinophils % 6.4 Basophils % 0.9 Neutrophils # 3.3 Lymphocytes # 0.9 Monocytes # 0.7 Eosinophils # 0.3 Basophils # 0.1 PT 13.4 H INR 1.2 Total Bilirubin 11.2 H Direct Bilirubin 7.4 H Indirect Bilirubin 3.8 H AST 54 H ALT 89 H Alkaline Phosphatase 283 H Serum Total Protein 5.5 L Albumin 3.2 L Globulin 2.3 L Albumin/Globulin Ratio 1.4 - Impressions ITS Impressions Abdomen MRI 12/07/17 09:42 IMPRESSION: Marked biliary and pancreatic ductal dilatation to the level of the ampulla. No intraductal filling defect seen. Findings are suspicious for a subtle ampullary mass. Suggest correlation with ERCP. The findings were sent to the Radiology Results Communication Center at 2:40 pm on 12/07/2017 to be communicated to a licensed caregiver. D/ / Lit Castro MD / Lit Castro MD Interpreting Provider: Lit Castro MD Abdomen CT 12/08/17 00:00 IMPRESSION: Patient is status post percutaneous biliary drainage tube catheter placement without adverse abnormality noted. There does appear to be some improvement to the previously noted intra and extrahepatic biliary ductal dilatation from recent exams. There is stable dilatation of the pancreatic duct. D/ / 12/08/2017 10:19:59 Aman Lindo MD / malachi Interpreting Provider: Aman Lindo MD Percutaneous Drainage 12/08/17 00:00 IMPRESSION: 1. Complete obstruction of the common bile duct with marked intrahepatic and extrahepatic biliary ductal dilatation. 2. Aborted procedure at traversing the common bile duct obstruction given his change in mental status and severe abdominal pain. 3. Right external biliary drainage catheter placement as discussed above. He was taken for immediate CT scan following the procedure which demonstrated no complications from the biliary drainage. He also returned to baseline following the CT scan. Plan: Continue external drainage for a few days and then re- attempt at traversing the common bile duct obstruction. D/ / James Valles MD / James Valles MD Interpreting Provider: James Valles MD - Patient Status Disposition: Transfer Short-Term Hosp Condition: Serious Functional capacity at discharge: independent ambulation Overall status at discharge: patient is not back to baseline - Discharge Instructions Follow Up With: Shawn Vazquez Jr, MD [Primary Care Provider] - - Diet and Activity Diet: other (NPO) <Reynold Russell - Last Filed: 12/13/17 14:28> Date of Encounter: 12/12/17 General Surgery Exam Initial Vital Signs Temp Pulse Resp BP Pulse Ox 98.4 F 121 18 134/88 96 12/06/17 16:11 12/06/17 16:11 12/06/17 16:11 12/06/17 16:11 12/06/17 16:11 - Hospital Course Hospital course: Mr. Pearson is a 67 year old male - Time Spent with Patient Total time spent providing and/or coordinating discharge services: Date of admission: 12/06/17 21:18 Primary care physician: Shawn Vazquez Jr, MD Consults: 12/07/17 18:35 Consult to Physician [CONS] Routine Consulting Provider: Reynold Russell Reason for Consult: Ampullary mass Time Notified: 18:36 Call Completed: Yes 12/07/17 19:52 Consult to Interventional Radiology [CONS] Routine Consulting Provider: Radiology Interventional Cols Reason for Consult: PTC obstructive jaundice Call Completed: Yes - Impressions ITS Impressions Abdomen MRI 12/07/17 09:42 IMPRESSION: Marked biliary and pancreatic ductal dilatation to the level of the ampulla. No intraductal filling defect seen. Findings are suspicious for a subtle ampullary mass. Suggest correlation with ERCP. The findings were sent to the Radiology Results Communication Center at 2:40 pm on 12/07/2017 to be communicated to a licensed caregiver. D/ / Lit Castro MD / Lit Castro MD Interpreting Provider: Lit Castro MD Abdomen CT 12/08/17 00:00 IMPRESSION: Patient is status post percutaneous biliary drainage tube catheter placement without adverse abnormality noted. There does appear to be some improvement to the previously noted intra and extrahepatic biliary ductal dilatation from recent exams. There is stable dilatation of the pancreatic duct. D/ / 12/08/2017 10:19:59 Aman Lindo MD / malachi Interpreting Provider: Aman Lindo MD Percutaneous Drainage 12/08/17 00:00 IMPRESSION: 1. Complete obstruction of the common bile duct with marked intrahepatic and extrahepatic biliary ductal dilatation. 2. Aborted procedure at traversing the common bile duct obstruction given his change in mental status and severe abdominal pain. 3. Right external biliary drainage catheter placement as discussed above. He was taken for immediate CT scan following the procedure which demonstrated no complications from the biliary drainage. He also returned to baseline following the CT scan. Plan: Continue external drainage for a few days and then re- attempt at traversing the common bile duct obstruction. D/ / James Valles MD / James Valles MD Interpreting Provider: James Valels MD - Attending Attestation I examined this patient and my medical decision-making was reviewed with the Resident Physician. I agree with the documented findings, disposition and treatment plan as described except to the extent set forth below. The patient is seen and evaluated on morning rounds. The patient underwent transhepatic drainage for days ago. He is bilirubin is now 11. 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 He will require aggressive transhepatic drainage and possibly drainage of each hepatic lobe individually. Once he has adequate liver function tests Whipple resection will be required for obstructing ampulla lesion. The case is discussed with at the [facility]. She has been kind enough to accept him in transfer. Reynold Hunt MD FACS
[2017-12-12 10:08] VITALS: BP 182/103
[2017-12-12] MEDS: Ondansetron 4 MG/2 ML VIAL IVP PRN (10:56)
--- NOTE | 2017-12-12 13:43 | Discharge Summary ---
Date of Encounter: 12/12/17 Time of Encounter: 11:00 - Discharge Diagnosis (1) GI bleed Priority: Secondary Status: Acute Assessment and Plan: Plan as above. Qualifiers: GI bleed type/associated pathology: unspecified gastrointestinal hemorrhage type Qualified Code(s): K92.2 - Gastrointestinal hemorrhage, unspecified (2) Anemia Priority: Secondary Status: Acute Assessment and Plan: Acute blood loss, likely GI bleed Precipitated by elevated INR, lab on admission reads INR >29 - Likely liver and coumadin related - INR corrected wth FFP, vitamin K, 2 units PRBC - currently INR wnld, Transused 6 units PRBC and 4 FFP since admission. INR reversed was 1.1 on 12/08. - Will recheck H&H now stable. Qualifiers: Anemia type: unspecified type Qualified Code(s): D64.9 - Anemia, unspecified (3) Jaundice Priority: Primary Status: Acute (4) Supratherapeutic INR Priority: Secondary Status: Acute (5) DVT prophylaxis Priority: Secondary Status: Acute Assessment and Plan: SCDs (6) Transaminitis Priority: Primary Status: Acute Assessment and Plan: GI consulted recommendations appreciated. Patient does take chronic pain medications at home including percocet per patient. CT scan: There was moderate intra and extrahepatic biliary ductal dilation without stone that was seen on CT scan. Gall bladder ultrasound: GBW thickened with bile sludge. common bile duct was 8.1 mm. Viral hepatitis panel negative (7) Hypertension Priority: Secondary Status: Acute Assessment and Plan: At home patient takes lisinopril and norvasc Pain under more control, helping BP Continue Norvasc and lisinopril Increase Norvasc to 10 mg daily Qualifiers: Hypertension type: essential hypertension Qualified Code(s): I10 - Essential (primary) hypertension (8) History of DVT (deep vein thrombosis) Priority: Secondary Status: Acute Assessment and Plan: SCDs on patient Because of severe bleed, patient is poor anticoagulation candidate and was stopped on coumadin and INR was reversed. (9) Hyperbilirubinemia Priority: Primary Status: Acute Assessment and Plan: Need IR and GI services to evaluate position of biliary drain. Services available tomorrow. 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 Hospital course: Mr. Pearson is a 67 year old male with multiple medical problems including hypertension, recurrent DVT on Coumadin, hypothyroidism. Patient was admitted to her facility for concerns of GI bleed. He was coagulopathic at the time as well. He received 2 units of blood. Patient was also noted to have elevated liver enzymes and bilirubin. CT scan of the abdomen and pelvis showed biliary duct dilatation. 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 Patient had a transhepatic cholangiogram which showed complete obstruction of the common bile duct with marketed dilatation of the intrahepatic and extrahepatic ducts. IR was consulted and a right external biliary drainage catheter was placed. She despite these maneuvers continued to have worsening liver enzymes and bilirubin. Patient was arranged to go to [facility] for definitive treatment. General surgery performed the discharge summary and I referred this. Patient was discharged in stable but guarded condition. - Time Spent with Patient Total time spent providing and/or coordinating discharge services: Less than 30 minutes - Discharge Medications Home Medications: ALPRAZolam [Xanax 0.25 MG Tablet] 0.25 mg PO BID PRN 12/06/17 [History] Desmopressin Acetate [Ddavp] 0.1 mg PO DAILY 12/06/17 [History] Levothyroxine [Synthroid] 75 mcg PO 0630 12/06/17 [History] Lisinopril [Zestril] 10 mg PO DAILY 12/06/17 [History] Mirtazapine [Remeron] 15 mg PO HS 12/06/17 [History] OxyCODONE/APAP 10/325 [Percocet 10/325 MG] 1 tab PO QID 12/06/17 [History] Oxymorphone HCl [Oxymorphone HCl ER] 30 mg PO QID 12/06/17 [History] Risedronate Sodium [Actonel] 20 mg PO QWEEK 12/06/17 [History] Testosterone [Androderm] 1 patch TP DAILY 12/06/17 [History] Testosterone [Androgel] 1 appl TP DAILY 12/06/17 [History] Warfarin Sodium 2.5 mg PO Q48H 12/06/17 [History] Warfarin Sodium 5 mg PO Q48H 12/06/17 [History] amLODIPine [Norvasc] 5 mg PO DAILY 12/06/17 [History] Allergies/Adverse Reactions: 3 Allergy/AdvReac Type Severity Reaction Status Date / Time No Known Allergies Allergy Verified 12/06/17 18:50 Date of admission: 12/06/17 21:18 Primary care physician: Shawn Vazquez Jr, MD Consults: 12/07/17 18:35 Consult to Physician [CONS] Routine Consulting Provider: Reynold Russell Reason for Consult: Ampullary mass Time Notified: 18:36 Call Completed: Yes 12/07/17 19:52 Consult to Interventional Radiology [CONS] Routine Consulting Provider: Radiology Interventional Cols Reason for Consult: PTC obstructive jaundice Call Completed: Yes Discharging clinician: Venu Wellington Anticipated date of discharge: 12/12/17 - Constitutional Vitals: Temp Pulse Resp BP Pulse Ox 97.9 F 91 15 182/103 97 12/12/17 10:07 12/12/17 10:07 12/12/17 10:07 12/12/17 10:07 12/12/17 10:07 General appearance: Present: cooperative, A&O X 3, answers questions appropriately - Head Head exam: Present: atraumatic, normocephalic - Eye Eye exam: Present: PERRL, conjuntiva pink, sclera anicteric Pupils: Present: PERRL - Neck Neck exam general surgery: Present: supple, trachea midline. Absent: lymphadenopathy - Respiratory Respiratory exam: Present: CTAB. Absent: accessory muscle use, rales, rhonchi, wheezes - GI/Abdominal GI/Abdominal exam: Present: normal bowel sounds, soft, no peritoneal signs. Absent: distended, tenderness - Extremities Exam Extremities exam: Present: warm, radial pulses palpable and symmetrical. Absent : calf tenderness, cyanotic, pedal edema - Neurological Exam Neurological exam: Present: CN II-XII intact, oriented X3, no focal deficits. Absent: pronater drift, facial droop, speech deficit - Skin Additional comments: Jaundice - Patient Status Disposition: Transfer Short-Term Hosp Condition: Serious Overall status at discharge: patient is not back to baseline - Discharge Instructions Follow Up With: Shawn Vazquez Jr, MD [Primary Care Provider] - - VTE Documentation of Mechanical Device: Intermittent pneumatic compression device
== END 2017-12-12 11:47 | disposition short-term general hospital (02) | DRG 441 ==
LOC: EMEROO 16:08 → ICNU 16:08 → 3ANU 12-07 12:29
PROVIDERS: ADMIT Internal Medicine Nephrology; ATTEND Internal Medicine Nephrology
PROC: ENDOEBX (2017-12-07 17:00)